=== PATIENT | male | born 1965 | race Caucasian/White ===

== ENCOUNTER 2016-09-08 13:03 | Observation (INO) | payer OTHER ==
[2016-09-08] MEDS ORDERED: NITROGLYCERIN SL TABS 0.4 MG TAB SUBLINGUAL STA (13:29)
[2016-09-08] MEDS ORDERED: ASPIRIN 81 MG CHEW PO STA (13:29)
[2016-09-08] MEDS ORDERED: IPRATROPIUM-ALBUTEROL 3 ML NEB INHALATION STA (13:29)
[2016-09-08] MEDS ORDERED: SODIUM CHLORIDE 0.9% 1,000 ML IV STA (13:29)
--- NOTE | 2016-09-08 13:33 | ED ---
Chest Pain HPI - General Chief Complaint: Chest Pain Stated Complaint: Chest Pain - Abnormal EKG Time Seen by Provider: 09/08/16 13:10 Source: patient, RN notes reviewed Mode of arrival: wheelchair Limitations: no limitations - History of Present Illness Initial Comments: 51-year-old male presents to the emergency department with a chief complaint of chest pain. Patient is 40 with a chest pain. It is revealed of his chest. Patient states he does have chronic COPD. Patient states that he is continuing with a cough cold runny nose and past 2 days. Patient is still more short of breath. Patient states he bleeds chest pain is related to COPD then to his heart. Patient states his been no nausea or vomiting. Patient states he has had a productive cough with that. Patient states that he went to urgent care and was sent here due to his EKG. Patient states pain is mild at this time. Patient states he feels more short of breath and chest pain. Patient denies any recent fever, chills, back pain, abdominal pain, nausea vomiting, numbness or tingling, dysuria or hematuria, constipation or diarrhea, headaches or visual changes, or any other current symptoms. - Related Data Home Medications Medication Instructions Recorded Confirmed Amoxicillin 500 mg PO Q8H 09/08/16 09/08/16 Cetirizine HCl [Zyrtec] 10 mg PO DAILY 09/08/16 09/08/16 Esomeprazole Magnesium [NexIUM] 20 mg PO DAILY PRN 09/08/16 09/08/16 Multivitamins, Thera [Multivitamin] 1 tab PO DAILY 09/08/16 09/08/16 Pseudoephedrine 12Hr [Sudafed 12Hr] 120 mg PO Q12H PRN 09/08/16 09/08/16 Zinc 50 mg PO DAILY 09/08/16 09/08/16 methylPREDNISolone [Medrol Dose 4 mg PO DIRECTED 09/08/16 09/08/16 Pack] Allergies Allergy/AdvReac Type Severity Reaction Status Date / Time No Known Allergies Allergy Verified 09/08/16 13:36 Review of Systems ROS Statement: Those systems with pertinent positive or pertinent negative responses have been documented in the HPI. ROS Other: All systems not noted in ROS Statement are negative. EKG Findings - EKG Comments: EKG Findings:: normal sinus rhythm 60 bpm, normal axis, no atopy, no S-T depressions or elevations, Past Medical History Past Medical History: COPD History of Any Multi-Drug Resistant Organisms: None Reported Past Surgical History: Cholecystectomy, Heart Catheterization Past Psychological History: No Psychological Hx Reported Smoking Status: Former smoker Past Alcohol Use History: Occasional Past Drug Use History: None Reported General Exam - General Exam Comments Initial Comments: General: The patient is awake and alert, in no distress, and does not appear acutely ill. Eye: Pupils are equal, round and reactive to light, extra-ocular movements are intact; there is normal conjunctiva bilaterally. No signs of icterus. Ears, nose, mouth and throat: There are moist mucous membranes and no oral lesions. Neck: The neck is supple, there is no tenderness. Cardiovascular: There is a regular rate and rhythm. No murmur, rub or gallop is appreciated. Respiratory: Lungs are clear to auscultation, respirations are non-labored, breath sounds are equal. expiratory wheeze, no stridor, rales, or rhonchi. Gastrointestinal: Soft, non-distended, non-tender abdomen without masses or organomegaly noted. There is no rebound or guarding present. No CVA tenderness. Bowel sounds are unremarkable. Back: There is no tenderness to palpation in the midline. There is no obvious deformity. No rashes noted. Musculoskeletal: Normal ROM, no tenderness, There is no pedal edema. There is no calf tenderness or swelling. Sensation intact. Pulses equal bilaterally 2+. Neurological: CN II-XII intact, There are no obvious motor or sensory deficits. Coordination appears grossly intact. Speech is normal. Skin: Skin is warm and dry and no rashes or lesions are noted. Psychiatric: Cooperative, appropriate mood & affect, normal judgment. Limitations: no limitations Course Vital Signs 09/08/16 09/08/16 09/08/16 13:09 13:54 13:57 Temperature 97 F L Pulse Rate 56 L 62 62 Respiratory 18 17 Rate Blood Pressure 134/92 122/83 O2 Sat by Pulse 99 100 Oximetry 09/08/16 09/08/16 14:02 15:01 Temperature Pulse Rate 67 66 Respiratory 17 Rate Blood Pressure O2 Sat by Pulse 100 Oximetry Chest Pain MDM - MDM 51-year-old male presents emergency Department chief complaint chest pain and shortness of breath. She did not change the patient's chest pain. Patient's EKG doesn't look stable compared to previous EKG however didn't the fact that he was having heaviness on the chest that has now since resolved there is concern it could be cardiac in origin. It could also be a COPD exacerbation he has been anorexic sensory outpatient we did feel better with the breathing treatment. This will get him for COPD exacerbation as well as unstable angina. We will continue cardiac rule out as well as continued breathing treatments and steroids for the patient. This is discussed with the patient and family and they're in agreement with this plan. All her questions have been answered. Disposition Clinical Impression: Unstable angina, COPD exacerbation, Failure of outpatient treatment Disposition: ADMITTED IP TO THIS HOSP Condition: Stable Referrals: Nicho Villalba MD [Primary Care Provider] - 1-2 days Time of Disposition: 16:08 Decision Date: 09/08/16 Decision Time: 16:08
[2016-09-08 13:46] LABS: Anisocytosis Slight; Basophils % (A) 0 %; CH 25.8; CHCM 31.3; Eosinophils % (A) 0 %; HCT 42.1 % (39.0-53.0); HDW 3.03; Hypochromasia Moderate; Luc # (Auto) 0.15; Luc % (Auto) 1; Lymphocytes # (A) 1.5 k/uL (1.0-4.8); Lymphocytes % (A) 12 %; MCH 25.7 pg (25.0-35.0); MCHC 30.9 g/dL (31.0-37.0); MCV 83.1 fL (80.0-100.0); Mean Platelet Volume 7.4; Monocytes # (A) 0.6 k/uL (0-1.0); Monocytes % (A) 5 %; Neutrophils # (A) 10.8 k/uL (1.3-7.7); Neutrophils % (A) 82 %; RBC 5.07 m/uL (4.30-5.90); WBC 13.2 k/uL (3.8-10.6); WBC (Perox) 13.63
[2016-09-08 13:47] LABS: Appearance,Urine Clear (Clear); Bilirubin,Urine Negative (Negative); Glucose,Urine (UA) Negative (Negative); Ketones,Urine Negative (Negative); Leukocyte Esterase,Urine Negative (Negative); Nitrite,Urine Negative (Negative); PH, Urine 5.5 (5.0-8.0); Protein,Urine Negative (Negative); Specific Gravity,Urine 1.008 (1.001-1.035); UA Billing (MACRO vs. MICRO) CHEM; Urobilinogen,Urine <2.0 mg/dL (<2.0)
[2016-09-08 14:05] LABS: ALT 46 U/L (21-72); AST 22 U/L (17-59); Alkaline Phosphatase 92 U/L (38-126); Amylase 55 U/L (30-110); Anion Gap 13 mmol/L; Blood Urea Nitrogen 14 mg/dL (9-20); Calcium 9.4 mg/dL (8.4-10.2); Carbon Dioxide 27 mmol/L (22-30); Chloride 103 mmol/L (98-107); Glucose 91 mg/dL (74-99); Magnesium 2.1 mg/dL (1.6-2.3); Non-African American GFR(MDRD) >60 (>60 ml/min/1.73 sqM); Sodium 143 mmol/L (137-145); Total Bilirubin 0.3 mg/dL (0.2-1.3); Total Protein 7.2 g/dL (6.3-8.2)
[2016-09-08 14:06] LABS: Creatine Kinase 37 U/L (55-170)
--- NOTE | 2016-09-08 14:10 | XR ---
EXAMINATION TYPE: XR chest 2V DATE OF EXAM: 09/08/2016 1:51 PM COMPARISON: 05/09/2014 HISTORY: Chest pain FINDINGS: The lungs are clear and there is no pneumothorax, pleural effusion, or focal pneumonia. Right paratr acheal soft tissue fullness noted. Surgical clips in the abdomen seen. IMPRESSION: 1. No acute process. Right paratracheal soft tissue fullness may be vascular. Consider follow-up CT c hest to exclude adenopathy.
[2016-09-08 14:13] LABS: Partial Thromboplastin Time 23.6 sec (22.0-30.0); Prothrombin Time 10.3 sec (9.0-12.0)
[2016-09-08 14:19] LABS: Creatine Kinase MB 2.1 ng/mL (0.0-2.4); Troponin I <0.012 ng/mL (0.000-0.034)
[2016-09-08 14:36] LABS: Potassium 4.4 mmol/L (3.5-5.1)
[2016-09-08] MEDS ORDERED: RX INFO: IV CONTRAST WAS GIVEN 1 EACH MISC MISCELLANE PRN (14:53)
--- NOTE | 2016-09-08 15:36 | CT ---
CT CHEST FOR PULMONARY EMBOLISM. EXAMINATION TYPE: CT chest angio for PE DATE OF EXAM: 09/08/2016 3:20 PM INDICATION: Pt states of chest heaviness today. Hx of COPD. CT DLP: 740 mGycm, Automated exposure control for dose reduction was used. CONTRAST: Patient injected with 100 mL of Omnipaque 350. COMPARISON: NONE TECHNIQUE: CT of the chest is performed on a spiral scan at 2 mm thick sections. Study is performed with intravenous contrast timed for evaluation for pulmonary embolism. This will limit additional po rtions of the evaluation. 3-D MIP images reconstructed by the technologist are reviewed on the compu ter in the coronal and sagittal planes. FINDINGS: No persistent filling defects are evident to suggest an acute pulmonary embolism. No mediastinal or hilar adenopathy enlarged by CT criteria is evident. The ascending aorta diameter at the level of the main pulmonary artery is 3.5 cm. The main pulmonary artery diameter at the bifur cation is 3.2 cm. Lung windows are clear. Limited CT section through the upper abdomen are unremarkable. IMPRESSIONS: 1. No acute pulmonary embolism.
[2016-09-08] MEDS ORDERED: NITROGLYCERIN SL TABS 0.4 MG TAB SUBLINGUAL PRN (16:08)
[2016-09-08] MEDS ORDERED: HEPARIN SODIUM,PORCINE 5,000 UNIT/ML 1 ML VIAL IV ONE (16:08)
[2016-09-08] MEDS ORDERED: IPRATROPIUM-ALBUTEROL 3 ML NEB INHALATION PRN (16:10)
[2016-09-08] MEDS ORDERED: PANTOPRAZOLE 40 MG TABLET PO PRN (16:11)
[2016-09-08] MEDS ORDERED: PSEUDOEPHEDRINE 12HR 120 MG TABLET.ER PO PRN (16:11)
[2016-09-08] MEDS ORDERED: HEPARIN SODIUM,PORCINE/D5W PMX 25,000 UNIT in DEXTROSE/WATER 1 500ML.BAG IV SCH (16:15)
[2016-09-08 20:12] LABS: Creatine Kinase 28 U/L (55-170)
[2016-09-08 20:17] LABS: Glucose,Whole Blood 122 mg/dL (75-99)
[2016-09-08 20:24] LABS: Creatine Kinase MB 1.6 ng/mL (0.0-2.4); Troponin I <0.012 ng/mL (0.000-0.034)
[2016-09-08 20:26] VITALS: BMI 30.9
[2016-09-08] MEDS: INSULIN LISPRO (humaLOG) 300 UNIT/3 ML VIAL SQ SCH (20:38)
[2016-09-08] MEDS: methylPREDNISolone SOD SUCCI 125 MG/2 ML VIAL IV SCH ×2 (20:39→23:08)
[2016-09-08] MEDS ORDERED: AMOXIC-POT CLAV 875-125MG 1 EACH TAB PO SCH (21:00)
[2016-09-08] MEDS: ACETAMINOPHEN TAB 325 MG TAB PO PRN (23:07)
[2016-09-08 23:27] LABS: Hemoglobin A1C 5.8 % (4.2-6.1)
[2016-09-09 01:04] LABS: Creatine Kinase 30 U/L (55-170)
[2016-09-09 01:16] LABS: Creatine Kinase MB 1.6 ng/mL (0.0-2.4); Troponin I <0.012 ng/mL (0.000-0.034)
[2016-09-09] MEDS ORDERED: HEPARIN SODIUM,PORCINE 5,000 UNIT/ML 1 ML VIAL IV PRN (02:53)
[2016-09-09 05:56] LABS: Glucose,Whole Blood 149 mg/dL (75-99)
[2016-09-09] MEDS: INSULIN LISPRO (humaLOG) 300 UNIT/3 ML VIAL SQ SCH ×4 (06:45→21:13)
[2016-09-09] MEDS: methylPREDNISolone SOD SUCCI 125 MG/2 ML VIAL IV SCH ×4 (06:45→23:26)
[2016-09-09] MEDS: IPRATROPIUM-ALBUTEROL 3 ML NEB INHALATION SCH ×3 (08:41→21:09)
--- NOTE | 2016-09-09 09:30 | P.CRDCN ---
History of Present Illness Consult date: 09/09/16 Requesting physician: Em Nava Consult reason: chest pain Chief complaint: Chest pain History of present illness: This is a 51-year-old gentleman with no prior documented history of hypertension, no hyperlipidemia, nonsmoker, no diabetes, no family history of premature coronary artery disease, rare EtOH, he has been dealing with what appears to be a bronchitis for the past few days, he originally went to the urgent care, was initiated on antibiotics, and steroids. Patient states he was not feeling much better and again went to the urgent care yesterday, he has been coughing a significant amount, nonproductive, was complaining of some chest heaviness in the office, EKG was performed which they felt to be abnormal and for this reason he was recommended to come to the hospital for further evaluation. EKG on arrival here showed a normal sinus rhythm with nonspecific ST-T wave changes in the inferior lateral leads, similar to EKG performed in 2005. Chest x-ray did not reveal any acute process, right paratracheal soft tissue fullness, may be vascular. No acute cardiopulmonary changes noted. CTA of the chest was performed which was negative for pulmonary embolism. No mediastinal or hilar adenopathy evident. Ascending aortic diameter at the level of the main pulmonary artery 3.5 cm. The main pulmonary artery diameter 3.2 cm. White blood cell count 13.2, hemoglobin 13.0. D-dimer negative. Potassium 4.4, creatinine 0.8. Magnesium level 2.1. Troponins have been negative 3. At the time of my examination this morning, patient continues to have nonproductive cough with intermittent heaviness in the chest. Past Medical History Past Medical History: COPD, GERD/Reflux, Osteoarthritis (OA) History of Any Multi-Drug Resistant Organisms: None Reported Past Surgical History: Cholecystectomy, Heart Catheterization Past Psychological History: No Psychological Hx Reported Smoking Status: Former smoker Past Alcohol Use History: Occasional Past Drug Use History: None Reported - Past Family History Mother Family Medical History: COPD, GERD/Reflux, Hypertension Additional Family Medical History / Comment(s): Glaucoma, staph infection Father Family Medical History: Coronary Artery Disease (CAD) Additional Family Medical History / Comment(s): Cancer-skin, stents placed Medications and Allergies Home Medications Medication Instructions Recorded Confirmed Type Amoxicillin 500 mg PO Q8H 09/08/16 09/08/16 History Cetirizine HCl [Zyrtec] 10 mg PO DAILY 09/08/16 09/08/16 History Esomeprazole Magnesium [NexIUM] 20 mg PO DAILY PRN 09/08/16 09/08/16 History Multivitamins, Thera [Multivitamin] 1 tab PO DAILY 09/08/16 09/08/16 History Pseudoephedrine 12Hr [Sudafed 12Hr] 120 mg PO Q12H PRN 09/08/16 09/08/16 History Zinc 50 mg PO DAILY 09/08/16 09/08/16 History methylPREDNISolone [Medrol Dose 4 mg PO DIRECTED 09/08/16 09/08/16 History Pack] Allergies Allergy/AdvReac Type Severity Reaction Status Date / Time No Known Allergies Allergy Verified 09/08/16 13:36 Physical Exam Vitals: Vital Signs Temp Pulse Pulse Resp BP BP Pulse Ox 09/09/16 07:47 80 17 09/09/16 07:40 97.4 F L 80 17 137/75 94 L 09/09/16 03:36 69 16 09/09/16 03:35 97.3 F L 69 16 106/56 95 09/08/16 23:31 72 16 09/08/16 23:04 72 16 123/72 94 L 09/08/16 22:35 80 09/08/16 22:24 80 09/08/16 19:55 97.8 F 68 17 138/82 98 09/08/16 19:39 97.0 F L 64 16 133/86 96 09/08/16 18:27 73 17 127/79 97 09/08/16 16:39 72 17 133/85 100 Intake and Output 09/08/16 09/09/16 09/09/16 22:59 06:59 14:59 Intake Total 208.771 Output Total 600 Balance -391.229 Intake: Intake, IV Titration 208.771 Amount Heparin Sodium,Porcine/ 208.771 D5w Pmx 25,000 unit In Dextrose/Water 1 500ml. bag @ 10.26 UNITS/KG/HR 20.01 mls/hr IV .Q24H JOE Rx#:[id number] Output: Urine 600 Other: # Voids 1 1 Weight 100.4 kg 100.4 kg PHYSICAL EXAMINATION: HEENT: Head is atraumatic, normocephalic. Pupils equal, round. Neck is supple. There is no elevated jugular venous pressure. HEART EXAMINATION: Heart S1, S2 normal. No murmur or gallop heard. CHEST EXAMINATION: Lungs reveal scattered coarse rhonchi that clear with cough. ABDOMEN: Soft, nontender. Bowel sounds are heard. No organomegaly noted. EXTREMITIES: 2+ peripheral pulses with no evidence of peripheral edema and no calf tenderness noted. NEUROLOGIC patient is awake, alert and oriented -3. . Results 09/08/16 13:30 09/08/16 13:30 Cardiac Enzymes 09/08/16 09/09/16 Range/Units 19:33 00:31 CK-MB (CK-2) 1.6 1.6 (0.0-2.4) ng/mL Troponin I <0.012 <0.012 (0.000-0.034) ng/mL Coagulation 09/09/16 Range/Units 00:31 APTT 31.2 H (22.0-30.0) sec Current Medications Generic Name Dose Route Start Last Admin Trade Name Freq PRN Reason Stop Dose Admin Acetaminophen 650 mg 09/08/16 20:55 09/08/16 23:07 Tylenol Tab PO 650 mg Q6HR PRN Administration Fever and/ or Pain Albuterol/Ipratropium 3 ml 09/08/16 16:10 09/08/16 22:32 Duoneb 0.5 Mg-3 Mg/3 Ml Soln INHALATION 3 ml RT-Q4H PRN Administration Shortness Of Breath Or Wheezing Albuterol/Ipratropium 3 ml 09/09/16 08:00 09/09/16 08:41 Duoneb 0.5 Mg-3 Mg/3 Ml Soln INHALATION 3 ml RT-TID JOE Administration Aspirin 325 mg 09/09/16 09:00 Aspirin PO DAILY JOE Heparin Sodium (Porcine) 5,000 unit 09/09/16 02:53 Heparin IV ONCE PRN heparin protocol Heparin Sodium/Dextrose 25,000 500 mls @ 20.01 mls/hr 09/08/16 16:15 02:50 unit/ IV Solution IV 13.26 units/kg/hr .Q24H JOE 25.86 mls/hr Protocol Titration 10.26 UNITS/KG/HR Ceftriaxone Sodium 1,000 mg/ 50 mls @ 100 mls/hr 09/09/16 09:00 09/09/16 07: 42 Sodium Chloride IVPB 100 mls/hr Q24HR JOE Administration Insulin Human Lispro 0 unit 09/08/16 21:00 09/09/16 06:45 Humalog SQ 2 unit ACHS JOE Administration Protocol Loratadine 10 mg 09/09/16 09:00 Claritin PO DAILY JOE Methylprednisolone Sodium Succinate 60 mg 09/08/16 18:00 09/09/16 06:45 Solu-Medrol IV 60 mg Q6HR JOE Administration Miscellaneous Information 1 each 09/08/16 14:53 Rx Info: Iv Contrast Was Given MISCELLANE 09/10/16 14:53 DAILY PRN Per Protocol Multivitamins 1 each 09/09/16 12:00 Theragran PO DAILY@1200 [facility] Nitroglycerin 0.4 mg 09/08/16 16:08 Nitrostat SUBLINGUAL Q5M PRN Chest Pain Pantoprazole Sodium 40 mg 09/08/16 16:11 Protonix PO DAILY PRN Heartburn Pseudoephedrine HCl 120 mg 09/08/16 16:11 09/08/16 23:08 Sudafed 12hr PO 120 mg Q12H PRN Administration Congestion Zinc Gluconate 50 mg 09/09/16 12:00 Zinc PO DAILY@1200 [facility] Intake and Output 09/08/16 09/09/16 09/09/16 22:59 06:59 14:59 Intake Total 208.771 Output Total 600 Balance -391.229 Intake: Intake, IV Titration 208.771 Amount Heparin Sodium,Porcine/ 208.771 D5w Pmx 25,000 unit In Dextrose/Water 1 500ml. bag @ 10.26 UNITS/KG/HR 20.01 mls/hr IV .Q24H [facility] Rx#:[id number] Output: Urine 600 Other: # Voids 1 1 Weight 100.4 kg 100.4 kg EKG Interpretations (text) EKG shows a normal sinus rhythm with nonspecific ST-T wave changes in the inferior lateral leads Assessment and Plan Plan: Assessment and plan #1 chest pain, atypical for acute coronary syndrome. Troponins negative 3. EKG shows normal sinus rhythm with nonspecific inferior lateral ST-T wave changes(J-point elevation). Similar to EKG performed in 2005. Patient did undergo heart catheterization several years ago which was reported to be normal. #2 cardiac risk factors negative for hypertension, no diabetes, no hyperlipidemia, patient is a nonsmoker. No family history of premature coronary artery disease. #3 GERD #4 chronic persistent bronchitis Plan We will obtain an echocardiogram with Doppler study. Discontinue IV heparin. Discontinue Nitropaste. Suggest pulmonary evaluation for the persistent bronchitis. Stress test may be performed as an outpatient down the road once the bronchitis has resolved. Further recommendations to follow. DNP note has been reviewed, I agree with a documented findings and plan of care. Patient was seen and examined.
--- NOTE | 2016-09-09 09:59 | HP ---
DATE OF ADMISSION: DATE OF SERVICE: 09/08/2016 CHIEF COMPLAINT: Chest pain. HISTORY OF PRESENT ILLNESS: This 51-year-old gentleman with a past medical history of multiple medical problems including COPD, GERD, DJD, history of cholecystectomy, cardiac catheterization and nicotine dependence being followed by Dr. Nicho Villalba in the outpatient setting presented with chest pain. 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 Details are not available. Currently the patient is complaining of runny nose initially, but subsequently patient had just some cough without much sputum. Today the patient came to [facility] with complaints of cough and chest pain, which is felt in the anterior part of the chest and patient underwent chest x-ray and CT angiography to rule out pulmonary embolism. Chest x-ray showed no acute abnormality. Patient was admitted further evaluation. EKG was also taken which showed no acute abnormality with normal sinus rhythm. There is no history of any fever, rigors or chills. No history of headache, loss of consciousness or seizures. PAST MEDICAL HISTORY: History of COPD, GERD, DJD, history of cholecystectomy. Medications at the time of admission include: 1. Medrol Dosepak. 2. Zinc 50 mg daily. 3. Sudafed 12 hour p.o. p.r.n. 4. Multivitamin 1 p.o. daily. 5. Nexium 20 mg daily. 6. Zyrtec 10 mg daily. 7. Amoxicillin 500 mg q.8 p.r.n. Allergies are none. FAMILY HISTORY: History of COPD, GERD, hypertension, glaucoma and staph infection in the family. SOCIAL HISTORY: Previous history of smoking. No history of alcohol intake. REVIEW OF SYSTEMS: ENT: No diminished hearing or vision. CARDIOVASCULAR: As mentioned earlier. RESPIRATORY: As mentioned earlier. GI: No nausea. : No dysuria. NERVOUS SYSTEM: No numbness or weakness. ALLERGY/IMMUNOLOGY: No asthma or hayfever. MUSCULOSKELETAL: As mentioned earlier. HEMATOLOGY/ONCOLOGY: No history of anemia. ENDOCRINE: No history of diabetes or hypothyroidism. CONSTITUTIONAL: As mentioned earlier. DERMATOLOGY: Negative. RHEUMATOLOGY: Negative. PSYCHIATRY: As mentioned earlier. PHYSICAL EXAMINATION: The patient is alert and oriented x3. The pulse is 72, blood pressure 123/72, respirations 16, temperature 97.8, pulse ox 94% on room air. HEENT: Conjunctivae normal. Oral mucosa moist. NECK: No jugular venous distention. No carotid bruit. No lymph node enlargement. CARDIOVASCULAR: S1 and S2, muffled. No S3, no S4. RESPIRATORY: Breath sounds diminished at the bases. Bilateral scattered rhonchi. No crackles. ABDOMEN: Soft, nontender. No mass palpable. LEGS: No edema, no swelling. NERVOUS SYSTEM: Higher function as mentioned. Moves all 4 limbs. No focal motor deficits. LYMPHATICS: No lymphadenopathy of neck, axillae or groin. SKIN: No ulcers, rashes or bleeding. JOINTS: deforming arthropathy. LABS: WBC 13.2 and platelets of 516. Glucose 122. UA noted. ASSESSMENT: 1. Chest pain, possible unstable angina, rule out coronary artery disease. 2. Possible chronic obstructive pulmonary disease acute chronic obstructive pulmonary disease with acute purulent tracheobronchitis. 3. Increased WBC. 4. Remote history of nicotine dependence. 5. History of gastroesophageal reflux disease. 6. History of degenerative joint disease. 7. History of cholecystectomy. 8. History of cardiac catheterization. RECOMMENDATIONS AND DISCUSSION: In this 51-year-old gentleman who presented with multiple complex medical issues, we will monitor the patient closely. Continue the current medications. Continue symptomatic treatment. I would recommend bronchodilators and steroids and rule out myocardial infarction . Consult Cardiology. Monitor blood sugars closely. Further recommendations to follow. A copy of dictation forwarded to Dr. Dr. Nicho Villalba who is the primary physician. GERONIMO
[2016-09-09 10:48] LABS: Cholesterol 216 mg/dL (<200); HDL Cholesterol 51 mg/dL (40-60); Triglycerides 118 mg/dL (<150)
[2016-09-09] MEDS: MULTIVITAMINS, THERA 1 EACH TAB PO SCH (11:32)
[2016-09-09] MEDS: ZINC GLUCONATE 50 MG TAB PO SCH (11:32)
[2016-09-09] MEDS: LORATADINE 10 MG TAB PO SCH (11:32)
[2016-09-09] MEDS: ASPIRIN 325 MG TAB PO SCH (11:32)
[2016-09-09] MEDS: ACETAMINOPHEN TAB 325 MG TAB PO PRN ×2 (11:38→17:02)
[2016-09-09 11:59] LABS: Glucose,Whole Blood 160 mg/dL (75-99)
--- NOTE | 2016-09-09 12:57 | ECHOF ---
Referral Reason:chest pain MEASUREMENTS -------- HEIGHT: 180.3 cm WEIGHT: 100.2 kg BP: 137/75 IVSd: 1.3 cm (0.6 - 1.1) LVIDd: 3.4 cm (3.9 - 5.3) LVPWd: 1.2 cm (0.6 - 1.1) IVSs: 1.7 cm LVIDs: 1.8 cm LVPWs: 1.9 cm Ao Diam: 3.4 cm (2.0 - 3.7) AV Cusp: 1.6 cm (1.5 - 2.6) LA Diam: 3.4 cm (2.7 - 3.8) MV EXCURSION: 13.883 mm (> 18.000) MV EF SLOPE: 48 mm/s (70 - 150) EPSS: 0.6 cm MV E Marky: 0.67 m/s MV DecT: 245 ms MV A Marky: 0.84 m/s MV E/A Ratio: 0.80 RAP: 5.00 mmHg RVSP: 12.14 mmHg FINDINGS -------- Sinus rhythm. This was a technically good study. There is mild concentric left ventricular hypertrophy. Overall left ventricular systolic function is normal with, an EF between 55 - 60 %. The right ventricle is normal in size and function. The left atrium is normal in size. The right atrium is normal in size. The aortic valve is trileaflet, and appears structurally normal. No aortic stenosis or regurgitation. Mild mitral regurgitation is present. Mild tricuspid regurgitation present. The right ventricular systolic pressure, as measured by Doppler, is 12.14mmHg. Pulmonic valve appears structurally normal. The aortic root size is normal. The pericardium is normal. CONCLUSIONS -------- 1. Sinus rhythm. 2. Mild tricuspid regurgitation present. 3. The right ventricular systolic pressure, as measured by Doppler, is 12.14mmHg. 4. Pulmonic valve appears structurally normal. 5. The aortic root size is normal. 6. The pericardium is normal. 7. This was a technically good study. 8. There is mild concentric left ventricular hypertrophy. 9. Overall left ventricular systolic function is normal with, an EF between 55 - 60 %. 10. The right ventricle is normal in size and function. 11. The left atrium is normal in size. 12. The right atrium is normal in size. 13. The aortic valve is trileaflet, and appears structurally normal. No aortic stenosis or regurgitation. 14. Mild mitral regurgitation is present. MUSIC SUPERVISOR: Bhavya Martinez RDCS
[2016-09-09] MEDS ORDERED: SYMBICORT 160-4.5 MCG INHALER INHALATION SCH (13:15)
--- NOTE | 2016-09-09 14:59 | P.CNPUL ---
History of Present Illness Consult date: 09/09/16 Reason for consult: dyspnea, cough, other Chief complaint: Shortness of breath and chest pain History of present illness: This is a very pleasant 51-year-old male presents to the emergency department with complaints of chest pain cough shortness of breath. He apparently coughed violently he has near syncope. He apparently was seen by Dr. Hale the past and told that he had no evidence of any chronic lung disease. Dr. Auguste apparently did pulmonary function test on him in my office. Anyway about once a year he develops his upper respiratory infection which turns into her lower respiratory tract condition we have chest congestion cough and difficulty breathing wheezing. If cough becomes so significant and profound that he almost blacks out. Anyway he has one of these episodes currently. In addition he has some tightness in his chest. Dr. Hale apparently told me he thought it was more his heart and his lungs. Review of Systems A 12 point review of system is positive for chest congestion cough tightness in her chest difficulty breathing and cough syncope all under the pulmonary system. The rest of the 12 point review of system is unremarkable. Past Medical History Past Medical History: COPD, GERD/Reflux, Osteoarthritis (OA) History of Any Multi-Drug Resistant Organisms: None Reported Past Surgical History: Cholecystectomy, Heart Catheterization Past Psychological History: No Psychological Hx Reported Smoking Status: Former smoker Past Alcohol Use History: Occasional Past Drug Use History: None Reported - Past Family History Mother Family Medical History: COPD, GERD/Reflux, Hypertension Additional Family Medical History / Comment(s): Glaucoma, staph infection Father Family Medical History: Coronary Artery Disease (CAD) Additional Family Medical History / Comment(s): Cancer-skin, stents placed Medications and Allergies Home Medications Medication Instructions Recorded Confirmed Type Cetirizine HCl [Zyrtec] 10 mg PO DAILY 09/08/16 09/08/16 History Esomeprazole Magnesium [NexIUM] 20 mg PO DAILY PRN 09/08/16 09/08/16 History Multivitamins, Thera [Multivitamin] 1 tab PO DAILY 09/08/16 09/08/16 History Pseudoephedrine 12Hr [Sudafed 12 120 mg PO Q12H PRN 09/08/16 09/08/16 History Hour] Zinc 50 mg PO DAILY 09/08/16 09/08/16 History Allergies Allergy/AdvReac Type Severity Reaction Status Date / Time No Known Allergies Allergy Verified 09/08/16 13:36 Physical Exam Osteopathic Statement: *. No significant issues noted on an osteopathic structural exam other than those noted in the History and Physical/Consult. Vitals: Vital Signs Temp Pulse Pulse Resp BP BP Pulse Ox 09/09/16 13:20 78 09/09/16 13:05 78 09/09/16 11:41 17 09/09/16 11:30 80 17 125/76 93 L 09/09/16 08:55 80 93 L 09/09/16 08:41 78 09/09/16 07:47 80 17 09/09/16 07:40 97.4 F L 80 17 137/75 94 L 09/09/16 03:36 69 16 09/09/16 03:35 97.3 F L 69 16 106/56 95 09/08/16 23:31 72 16 09/08/16 23:04 72 16 123/72 94 L 09/08/16 22:35 80 09/08/16 22:24 80 09/08/16 19:55 97.8 F 68 17 138/82 98 09/08/16 19:39 97.0 F L 64 16 133/86 96 09/08/16 18:27 73 17 127/79 97 09/08/16 16:39 72 17 133/85 100 Intake and Output 09/08/16 09/09/16 09/09/16 22:59 06:59 14:59 Intake Total 208.771 300 Output Total 600 600 Balance -391.229 -300 Intake: Intake, IV Titration 208.771 Amount Heparin Sodium,Porcine/ 208.771 D5w Pmx 25,000 unit In Dextrose/Water 1 500ml. bag @ 10.26 UNITS/KG/HR 20.01 mls/hr IV .Q24H PENDING SALE TO [facility] Rx#:[id number] Oral 300 Output: Urine 600 600 Other: # Voids 1 1 Weight 100.4 kg 100.4 kg No acute distress, oriented 3. He has a violent cough while in the room and coughs a number times and has a cough that makes me believe that he likely has underlying tracheal bronchomalacia. The cough is somewhat congested and very rhonchorous sound sounds. HEENT examination is grossly unremarkable. Mucous membranes are moist. There were no oral lesions. Neck supple. Full range of motion. No adenopathy. Cardiovascular examination reveals regular rhythm rate. S1 and S2 normal. No S3-S4. No murmur. Lungs reveal some coarse rhonchi and wheezes. Breath sounds are diminished. Expiratory coarse rhonchi noted bilaterally. The rest examinations unremarkable. Next Abdomen soft. Extremities are intact. Results - Laboratory Findings CBC and BMP: 09/08/16 13:30 09/08/16 13:30 PT/INR, D-dimer PT 10.3 sec (9.0-12.0) 09/08/16 13:30 INR 1.0 (<1.1) 09/08/16 13:30 D-Dimer <0.17 mg/L FEU (<0.60) 09/08/16 13:30 Abnormal lab findings: Abnormal Labs 09/08/16 09/08/16 09/09/16 19:33 20:15 00:31 APTT POC Glucose (mg/dL) 122 H Total Creatine Kinase 28 L 30 L Cholesterol LDL Cholesterol, Calc 09/09/16 09/09/16 09/09/16 00:31 05:54 09:34 APTT 31.2 H POC Glucose (mg/dL) 149 H Total Creatine Kinase Cholesterol 216 H LDL Cholesterol, Calc 141 H 09/09/16 09/09/16 09:34 11:58 APTT 48.9 H POC Glucose (mg/dL) 160 H Total Creatine Kinase Cholesterol LDL Cholesterol, Calc Assessment and Plan (1) COPD exacerbation Status: Acute Plan: Plan This patient will receive a 2 pronged therapy. Initially he'll be given bronchodilators steroids antibiotics and so forth to help with the acute process. Subsequent to that he'll need to be seen in the office at which time he'll need a 6 minute walk distance a chest x-ray and a pulmonary function test. In fact he did have a PFT with Dr. Auguste that was normal, we might consider methacholine challenge test. Finally, to document his tracheal bronchomalacia, a bronchoscopy may be in order. Time with Patient: Greater than 30
[2016-09-09 16:56] LABS: Glucose,Whole Blood 150 mg/dL (75-99)
[2016-09-09 21:01] LABS: Glucose,Whole Blood 157 mg/dL (75-99)
[2016-09-09] MEDS: BUDESONIDE 1 MG/2 ML NEBU INHALATION SCH (21:10)
[2016-09-09] MEDS: FORMOTEROL FUMARATE 20 MCG/2 ML NEBU INHALATION SCH (21:10)
[2016-09-10] MEDS: methylPREDNISolone SOD SUCCI 125 MG/2 ML VIAL IV SCH ×4 (05:52→23:02)
[2016-09-10 07:45] LABS: Glucose,Whole Blood 127 mg/dL (75-99)
[2016-09-10] MEDS: FORMOTEROL FUMARATE 20 MCG/2 ML NEBU INHALATION SCH ×2 (08:02→20:36)
[2016-09-10] MEDS: BUDESONIDE 1 MG/2 ML NEBU INHALATION SCH ×2 (08:02→20:36)
[2016-09-10] MEDS: IPRATROPIUM-ALBUTEROL 3 ML NEB INHALATION SCH ×3 (08:02→20:36)
[2016-09-10] MEDS: INSULIN LISPRO (humaLOG) 300 UNIT/3 ML VIAL SQ SCH ×4 (08:42→21:39)
[2016-09-10] MEDS: LORATADINE 10 MG TAB PO SCH (08:49)
[2016-09-10] MEDS: ATORVASTATIN 10 MG TAB PO SCH (08:49)
[2016-09-10] MEDS: ASPIRIN 325 MG TAB PO SCH (08:50)
[2016-09-10] MEDS: ACETAMINOPHEN TAB 325 MG TAB PO PRN ×2 (09:11→15:46)
--- NOTE | 2016-09-10 11:17 | PN ---
DATE OF SERVICE: 09/09/2016 This 51-year-old gentleman who was admitted with chest pain, also had a cough indicating bronchitis also. No fever. No headache, loss of consciousness or seizures. No shortness of breath. On exam, alert and oriented x3. Pulse 84, blood pressure 120/58, respirations 18, temperature 97.1, pulse ox 94% on room air. HEENT: Conjunctivae normal. NECK: No jugular venous distention. CARDIOVASCULAR: S1 and S2, muffled. RESPIRATORY: Breath sounds diminished at the bases. A few scattered rhonchi and crackles. ABDOMEN: Soft, nontender. LEGS: No edema, no swelling. NERVOUS SYSTEM: No focal deficits. LABS: WBC 13.2, Other labs are noted. Lipids are noted. ASSESSMENT: 1. Chest pain, possible unstable angina, acute coronary syndrome ruled out. 2. Possible chronic obstructive pulmonary disease, acute exacerbation with acute purulent tracheobronchitis. 3. Incessant cough. 4. Increased WBC. 5. Remote history of nicotine dependence. 6. History of gastroesophageal reflux disease. 7. History of degenerative joint disease. 8. History of cholecystectomy. 9. History of cardiac catheterization. 10. Hyperlipidemia. RECOMMENDATIONS AND DISCUSSION: Recommend to continue the current medications. Continue with monitoring and symptomatic treatment. Otherwise, at this time I would recommend continue with the current medications, continue with symptomatic treatment. Outpatient followup as recommended by Cardiology. Guarded prognosis because of multiple complex medical issues. Further recommendations to follow. Continue with bronchodilators.
[2016-09-10 12:07] LABS: Glucose,Whole Blood 174 mg/dL (75-99)
[2016-09-10] MEDS: ZINC GLUCONATE 50 MG TAB PO SCH (12:32)
[2016-09-10] MEDS: MULTIVITAMINS, THERA 1 EACH TAB PO SCH (12:32)
--- NOTE | 2016-09-10 13:35 | P.PN ---
Subjective Progress note dated 09/10/2016 X This is a 51-year-old gentleman who we saw yesterday in consultation. He presented to the emergency department with complaints of chest pain cough shortness of breath. He apparently has cough syncope. Doing much better today. He is seeing Dr. Auguste in the past. He does need follow-up and pulmonary. I told him that he should probably stay 1 more day for additional steroids bronchodilators, etc. The Tessalon Perles and also the Tussionex seem to be helping his cough. His is at the bedside. Objective - Vital Signs Vital signs: Vital Signs Temp 97.0 F L 09/10/16 07:00 Pulse 84 09/10/16 12:21 Resp 20 09/10/16 08:02 BP 104/65 09/10/16 07:00 Pulse Ox 94 L 09/10/16 07:00 Intake & Output 09/09/16 09/10/16 09/10/16 18:59 06:59 18:59 Intake Total 300 100 480 Output Total 600 Balance -300 100 480 Intake: Oral 300 100 480 Output: Urine 600 Other: # Voids 1 - Exam No acute distress, oriented 3. HEENT examination is grossly unremarkable. Mucous membranes are moist. There are no oral lesions. Neck supple. Full range of motion. No adenopathy. Neck veins are flat. Cardiovascular examination reveals regular rhythm rate. S1-S2 normal. Lungs reveal some coarse expiratory rhonchi. Breath sounds have improved. No expiratory wheezes. No crackles. He does have one bile and cough while was in the room. Abdomen soft Extremities are intact. - Labs CBC & Chem 7: 09/08/16 13:30 09/08/16 13:30 Labs: Abnormal Lab Results - Last 24 Hours (Table) 09/09/16 09/09/16 09/10/16 Range/Units 16:55 20:52 07:17 POC Glucose (mg/dL) 150 H 157 H 127 H (75-99) mg/dL 09/10/16 Range/Units 11:50 POC Glucose (mg/dL) 174 H (75-99) mg/dL Assessment and Plan (1) COPD exacerbation Status: Acute Plan: Plan This patient will receive a 2 pronged therapy. Initially he'll be given bronchodilators steroids antibiotics and so forth to help with the acute process. Subsequent to that he'll need to be seen in the office at which time he'll need a 6 minute walk distance a chest x-ray and a pulmonary function test. In fact he did have a PFT with Dr. Auguste that was normal, we might consider methacholine challenge test. Finally, to document his tracheal bronchomalacia, a bronchoscopy may be in order. Plan dated 09/10/2016 The patient seems to be doing better. Can be discharged tomorrow. Should be sent home on a short course of antibiotics and some prednisone with a burst and taper. In addition, he will need follow-up in the office. He has seen Dr. Auguste in the past. He should have a pulmonary function tests or recently done , and normal, and methacholine challenge test. In addition, he may benefit from bronchoscopy to evaluate the potential for tracheal bronchomalacia. Finally he should be discharged home on all the usual medications. Time with Patient: Less than 30
[2016-09-10] MEDS ORDERED: guaiFENesin SYRUP 100MG/5ML 200 MG/10 ML CUP PO PRN (14:33)
[2016-09-10 17:15] LABS: Glucose,Whole Blood 120 mg/dL (75-99)
[2016-09-10 21:28] LABS: Glucose,Whole Blood 146 mg/dL (75-99)
[2016-09-10] MEDS: ALPRAZolam 0.25 MG TAB PO PRN (23:02)
[2016-09-11] MEDS: methylPREDNISolone SOD SUCCI 125 MG/2 ML VIAL IV SCH ×4 (05:53→23:33)
[2016-09-11 07:38] LABS: Glucose,Whole Blood 125 mg/dL (75-99)
[2016-09-11] MEDS: IPRATROPIUM-ALBUTEROL 3 ML NEB INHALATION SCH ×3 (07:54→20:01)
[2016-09-11] MEDS: FORMOTEROL FUMARATE 20 MCG/2 ML NEBU INHALATION SCH ×2 (07:55→20:01)
[2016-09-11] MEDS: BUDESONIDE 1 MG/2 ML NEBU INHALATION SCH ×2 (07:55→20:06)
[2016-09-11] MEDS: ASPIRIN 325 MG TAB PO SCH (07:56)
[2016-09-11] MEDS: LORATADINE 10 MG TAB PO SCH (07:57)
[2016-09-11] MEDS: INSULIN LISPRO (humaLOG) 300 UNIT/3 ML VIAL SQ SCH ×4 (07:57→21:58)
[2016-09-11] MEDS: ATORVASTATIN 10 MG TAB PO SCH (07:57)
--- NOTE | 2016-09-11 10:53 | PN ---
DATE OF SERVICE: 09/10/2016 This 51-year-old gentleman who was admitted with chest pain, also had acute coronary syndrome. Patient also had possible COPD. The patient being closely monitored. At this time, no chest pain or palpitations. No fever. Dr. Calles is following the patient closely. On exam, alert and oriented x3. Pulse is 81, blood pressure 134/86, respirations 20, temperature 97.5, pulse ox 94% on room air. HEENT: Conjunctivae normal. NECK: No jugular venous distention. CARDIOVASCULAR: S1 and S2, muffled. RESPIRATORY: Breath sounds diminished at the bases. Bilateral scattered rhonchi and crackles. ABDOMEN: Soft, nontender. LEGS: No edema, no swelling. NERVOUS SYSTEM: No focal deficits Labs are cholesterol 216, LDL is 141. WBC noted. ASSESSMENT: 1. Chest pain, possible unstable angina, acute coronary syndrome ruled out. 2. Chronic obstructive pulmonary disease, acute exacerbation, acute purulent tracheobronchitis. 3. Incessant cough. 4. Increased WBC. 5. Remote history of nicotine dependence. 6. Hyperlipidemia. 7. History of gastroesophageal reflux disease. 8. History of degenerative joint disease. 9. History of cholecystectomy. 10. History of cardiac catheterization. 11. FULL CODE. RECOMMENDATIONS AND DISCUSSION: Recommend to continue current medications. Continue with monitoring. Continue with bronchodilators. Follow closely with Pulmonary. Continue with IV steroids. Guarded prognosis because of multiple complex medical issues. Further recommendations to follow.
--- NOTE | 2016-09-11 11:49 | P.PN ---
Subjective Progress note dated 09/10/2016 X This is a 51-year-old gentleman who we saw yesterday in consultation. He presented to the emergency department with complaints of chest pain cough shortness of breath. He apparently has cough syncope. Doing much better today. He is seeing Dr. Auguste in the past. He does need follow-up and pulmonary. I told him that he should probably stay 1 more day for additional steroids bronchodilators, etc. The Tessalon Perles and also the Tussionex seem to be helping his cough. His is at the bedside. Progress note dated 09/11/2016 This is a 51-year-old white male seen in consultation 2 days ago. The patient is doing a bit better. Is seeing Dr. Hale in the past. Apparently had pulmonary function test was told that everything was okay. He came with him with an episode about like a bronchitis with reactive bronchospasm and bronchial inflammation. Also sounds based on his cough they may have a component of tracheal bronchomalacia. States he gets sick about twice a year. The patient is well enough to go home today. The patient should be discharged home on some antibiotics and some steroids. I would also recommend a inhaler such as Symbicort to Advair or Breo which is a combination inhaled corticosteroid and long-acting beta agonist. He should also be discharged home on a rescue inhaler an [employer] machine. Objective - Vital Signs Vital signs: Vital Signs Temp 96.7 F L 09/11/16 07:00 Pulse 80 09/11/16 11:32 Resp 20 09/11/16 07:00 BP 121/68 09/11/16 07:00 Pulse Ox 92 L 09/11/16 07:00 Intake & Output 09/10/16 09/11/16 09/11/16 18:59 06:59 18:59 Intake Total 960 200 Output Total 1 Balance 960 199 Intake: Oral 960 200 Output: Stool 1 Other: Voiding Method Toilet # Voids 1 1 # Bowel Movements 1 # Emeses 1 - Exam No acute distress, oriented 3. HEENT examination is grossly unremarkable. Mucous membranes are moist. There are no oral lesions. Neck supple. Full range of motion. No adenopathy. Neck veins are flat. Cardiovascular examination reveals regular rhythm rate. S1-S2 normal. Lungs reveal some coarse expiratory rhonchi. Breath sounds have improved. No expiratory wheezes. No crackles. He does have one bile and cough while was in the room. Abdomen soft Extremities are intact. - Labs CBC & Chem 7: 09/08/16 13:30 09/08/16 13:30 Labs: Abnormal Lab Results - Last 24 Hours (Table) 09/10/16 09/10/16 09/10/16 Range/Units 11:50 17:03 21:18 POC Glucose (mg/dL) 174 H 120 H 146 H (75-99) mg/dL 09/11/16 Range/Units 07:15 POC Glucose (mg/dL) 125 H (75-99) mg/dL Assessment and Plan (1) COPD exacerbation Status: Acute Plan: Plan This patient will receive a 2 pronged therapy. Initially he'll be given bronchodilators steroids antibiotics and so forth to help with the acute process. Subsequent to that he'll need to be seen in the office at which time he'll need a 6 minute walk distance a chest x-ray and a pulmonary function test. In fact he did have a PFT with Dr. Auguste that was normal, we might consider methacholine challenge test. Finally, to document his tracheal bronchomalacia, a bronchoscopy may be in order. Plan dated 09/10/2016 The patient seems to be doing better. Can be discharged tomorrow. Should be sent home on a short course of antibiotics and some prednisone with a burst and taper. In addition, he will need follow-up in the office. He has seen Dr. Auguste in the past. He should have a pulmonary function tests or recently done , and normal, and methacholine challenge test. In addition, he may benefit from bronchoscopy to evaluate the potential for tracheal bronchomalacia. Finally he should be discharged home on all the usual medications. Plan dated 09/11/2016 The patient is doing better. The patient could be discharged home today. The patient may benefit from a methacholine challenge test and/or bronchoscopy with airway examination in the future. The patient will follow with me in the office. The patient should be discharged home on some prednisone with a burst and taper 40 for 4 days, 30 mg for 4 days, 20 mg for 4 days, and, 10 mg 4 days and stop. The patient should also go home on some sort of oral antibiotic for about 7-10 days. In addition, the patient would benefit from a rescue medication such as albuterol inhaler 2 puffs when necessary as well as a combination inhaler such as Advair, Symbicort, Deanne Gomez, which is a combination inhaled corticosteroid and long-acting beta agonist. Time with Patient: Less than 30
[2016-09-11] MEDS: MULTIVITAMINS, THERA 1 EACH TAB PO SCH (12:06)
[2016-09-11] MEDS: ZINC GLUCONATE 50 MG TAB PO SCH (12:06)
[2016-09-11 12:10] LABS: Glucose,Whole Blood 145 mg/dL (75-99)
[2016-09-11] MEDS: ACETAMINOPHEN TAB 325 MG TAB PO PRN (12:20)
[2016-09-11 13:24] LABS: Basophils % (A) 0 %; CH 25.9; CHCM 31.1; Eosinophils % (A) 0 %; HCT 40.6 % (39.0-53.0); HDW 2.99; HGB 12.4 gm/dL (13.0-17.5); Hypochromasia Moderate; Luc # (Auto) 0.18; Luc % (Auto) 1; Lymphocytes # (A) 0.6 k/uL (1.0-4.8); Lymphocytes % (A) 3 %; MCH 25.6 pg (25.0-35.0); MCHC 30.6 g/dL (31.0-37.0); MCV 83.6 fL (80.0-100.0); Mean Platelet Volume 7.2; Monocytes # (A) 0.9 k/uL (0-1.0); Monocytes % (A) 4 %; Neutrophils # (A) 20.6 k/uL (1.3-7.7); Neutrophils % (A) 92 %; RBC 4.86 m/uL (4.30-5.90); RDW 15.9 % (11.5-15.5); WBC 22.3 k/uL (3.8-10.6); WBC (Perox) 23.65
[2016-09-11] MEDS: PANTOPRAZOLE 40 MG/10 ML VIAL IVP SCH ×2 (14:35→21:13)
[2016-09-11 17:18] LABS: Glucose,Whole Blood 153 mg/dL (75-99)
--- NOTE | 2016-09-11 20:19 | PN ---
DATE OF SERVICE: 09/11/2016 This 51-year-old gentleman presented with multiple medical problems including shortness of breath and cough, is being closely monitored. Patient also complains of gastrointestinal bleed. Gastroenterology consultation. No chest pain, no palpitations. No fever. Patient complaining of lower gastrointestinal bleeding at this time. On exam, alert and oriented x3. Pulse 75, blood pressure 130/77, respirations 19, temperature 97.6, pulse ox 94% on room air. HEENT: Conjunctivae normal. NECK: No jugular venous distention. CARDIOVASCULAR: S1 and S2, muffled. RESPIRATORY: Breath sounds diminished at the bases. A few scattered rhonchi. No crackles. ABDOMEN: Soft, nontender. LEGS: No edema, no swelling. NERVOUS SYSTEM: No focal deficits. LABS: WBC 20.3 and other labs are noted. ASSESSMENT: 1. Chest pain, possible unstable angina. Acute coronary syndrome ruled out. 2. Chronic obstructive pulmonary disease acute exacerbation, acute purulent tracheobronchitis. 3. Possible lower gastrointestinal bleeding. 4. Increased cough. 5. Increased WBC. 6. Remote history of nicotine dependence. 7. Hyperlipidemia. 8. History of gastroesophageal reflux disease. 9. History of degenerative joint disease. 10. History of cholecystectomy. 11. History of cardiac catheterization. 12. FULL CODE. RECOMMENDATIONS AND DISCUSSION: In this 51-year-old gentleman who presented with multiple complex medical issues, will monitor the patient closely. Continue the current medications, symptomatic treatment. Await Gastroenterology consultation for lower GI bleed. Otherwise, guarded prognosis because of multiple complex medical issues. Further recommendations to follow.
[2016-09-11] MEDS: ALPRAZolam 0.25 MG TAB PO PRN (21:13)
[2016-09-11 21:24] LABS: Glucose,Whole Blood 141 mg/dL (75-99)
[2016-09-12] MEDS: methylPREDNISolone SOD SUCCI 125 MG/2 ML VIAL IV SCH ×3 (06:38→17:47)
[2016-09-12 07:28] LABS: Glucose,Whole Blood 129 mg/dL (75-99)
[2016-09-12 08:14] LABS: Basophils # (A) 0.1 k/uL (0-0.2); Basophils % (A) 0 %; CH 25.8; CHCM 30.6; Eosinophils % (A) 0 %; HCT 44.5 % (39.0-53.0); HDW 2.92; HGB 13.2 gm/dL (13.0-17.5); Hypochromasia Moderate; Luc # (Auto) 0.15; Luc % (Auto) 1; Lymphocytes # (A) 0.8 k/uL (1.0-4.8); Lymphocytes % (A) 3 %; MCH 25.2 pg (25.0-35.0); MCHC 29.8 g/dL (31.0-37.0); MCV 84.6 fL (80.0-100.0); Mean Platelet Volume 7.2; Monocytes % (A) 4 %; Neutrophils # (A) 22.4 k/uL (1.3-7.7); Neutrophils % (A) 92 %; RBC 5.25 m/uL (4.30-5.90); RDW 15.7 % (11.5-15.5); WBC 24.3 k/uL (3.8-10.6); WBC (Perox) 24.92
[2016-09-12] MEDS: IPRATROPIUM-ALBUTEROL 3 ML NEB INHALATION SCH ×3 (09:35→19:37)
[2016-09-12] MEDS: FORMOTEROL FUMARATE 20 MCG/2 ML NEBU INHALATION SCH ×2 (09:35→19:37)
[2016-09-12] MEDS: INSULIN LISPRO (humaLOG) 300 UNIT/3 ML VIAL SQ SCH ×4 (09:36→21:47)
[2016-09-12] MEDS: BUDESONIDE 1 MG/2 ML NEBU INHALATION SCH ×2 (09:36→19:37)
[2016-09-12] MEDS: LORATADINE 10 MG TAB PO SCH (09:38)
[2016-09-12] MEDS: ASPIRIN 325 MG TAB PO SCH (09:38)
[2016-09-12] MEDS: PANTOPRAZOLE 40 MG/10 ML VIAL IVP SCH ×2 (09:38→21:47)
[2016-09-12] MEDS: ATORVASTATIN 10 MG TAB PO SCH (09:38)
--- NOTE | 2016-09-12 10:09 | DS ---
DATE OF ADMISSION: 09/08/2016 DATE OF DISCHARGE: 09/08/2016 FINAL DIAGNOSIS(ES): 1. Chest pain, possible unstable angina, acute coronary syndrome ruled out. 2. Chronic obstructive pulmonary disease exacerbation, acute purulent tracheobronchitis. 3. Incessant cough, improved. 4. Increased WBC. 5. Remote history of nicotine dependence. 6. Hyperlipidemia. 7. History of gastroesophageal reflux disease. 8. History of degenerative joint disease. 9. History of cholecystectomy. 10. History of cardiac catheterization. 11. FULL CODE. DISCHARGE DISPOSITION: The patient will be discharged in stable. Discharge cleared by Dr. Calles. Outpatient follow-up recommended by Dr. Calles. HISTORY OF PRESENT ILLNESS: This 51 -year-old gentleman admitted with chest pain, shortness of breath and cough and other multiple medical problems, the patient treated empirically with bronchodilators. Patient improved significantly. Cardiology saw the patient, recommended outpatient follow-up. A 2-D echo and Doppler was also done which showed normal ejection fraction 55 to 60%. Exam, vitals are stable. CARDIOVASCULAR SYSTEM: S1, S2 muffled. ABDOMEN: Soft. Nervous system: No focal deficits. DISCHARGE ADVICE AND MEDICATIONS: 1. Diet is cardiac. 2. Activity limited until follow-up. 3. Follow-up with Dr. Nicho Frances in 2 to 3 days. 4. Follow-up with Dr. Calles as advised. 5. Albuterol 1 to 2 puffs q.4h p.r.n. 6. Symbicort 160/4.5, 2 puffs b.i.d. 7. Ceftin 500 mg p.o. b.i.d. for one week. 8. zyretec 10 mg p.o. daily. 9. esmoprazole. 20 mg p.o. daily. 10. Multivitamin one p.o. daily. 11. Sudafed bid. 12.zinc 50 mg daily 13. Solu-Medrol Dosepak. MTDD
--- NOTE | 2016-09-12 12:34 | P.PN ---
Subjective Progress note dated 09/10/2016 X This is a 51-year-old gentleman who we saw yesterday in consultation. He presented to the emergency department with complaints of chest pain cough shortness of breath. He apparently has cough syncope. Doing much better today. He is seeing Dr. Auguste in the past. He does need follow-up and pulmonary. I told him that he should probably stay 1 more day for additional steroids bronchodilators, etc. The Tessalon Perles and also the Tussionex seem to be helping his cough. His is at the bedside. Progress note dated 09/11/2016 This is a 51-year-old white male seen in consultation 2 days ago. The patient is doing a bit better. Is seeing Dr. Hale in the past. Apparently had pulmonary function test was told that everything was okay. He came with him with an episode about like a bronchitis with reactive bronchospasm and bronchial inflammation. Also sounds based on his cough they may have a component of tracheal bronchomalacia. States he gets sick about twice a year. The patient is well enough to go home today. The patient should be discharged home on some antibiotics and some steroids. I would also recommend a inhaler such as Symbicort to Advair or Breo which is a combination inhaled corticosteroid and long-acting beta agonist. He should also be discharged home on a rescue inhaler an updraft machine. 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 The patient is ready for discharge to the pulmonary standpoint as he was yesterday. Apparently started developing some rectal bleeding from hemorrhoids. 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 The patient does have an appointment to follow will be in the office. We talked about possible methacholine challenge test and/or bronchoscopy in the future. Objective - Vital Signs Vital signs: Vital Signs Temp 96.7 F L 09/12/16 07:00 Pulse 76 09/12/16 09:48 Resp 18 09/12/16 07:00 BP 131/74 09/12/16 07:00 Pulse Ox 94 L 09/12/16 07:00 Intake & Output 09/11/16 09/12/1609/12/17 18:59 06:59 18:59 Output Total 450 Balance -450 Output: Urine 450 Other: Voiding Method Toilet # Voids 3 1 # Bowel Movements 1 - Exam No acute distress, oriented 3. HEENT examination is grossly unremarkable. Mucous membranes are moist. There are no oral lesions. Neck supple. Full range of motion. No adenopathy. Neck veins are flat. Cardiovascular examination reveals regular rhythm rate. S1-S2 normal. Lungs reveal some coarse expiratory rhonchi which have improved. Breath sounds have improved. No expiratory wheezes. No crackles. He does have one bile and cough while was in the room. Abdomen soft Extremities are intact. No edema - Labs CBC & Chem 7: 09/12/16 07:59 09/08/16 13:30 Labs: Abnormal Lab Results - Last 24 Hours (Table) 09/11/16 09/11/16 09/11/16 Range/Units 13:01 17:16 21:21 WBC 22.3 H (3.8-10.6) k/uL Hgb 12.4 L (13.0-17.5) gm/dL MCHC 30.6 L (31.0-37.0) g/dL RDW 15.9 H (11.5-15.5) % Plt Count 559 H (150-450) k/uL Neutrophils # 20.6 H (1.3-7.7) k/uL Lymphocytes # 0.6 L (1.0-4.8) k/uL POC Glucose (mg/dL) 153 H 141 H (75-99) mg/dL 09/12/16 09/12/16 Range/Units : 07:59 WBC 24.3 H (3.8-10.6) k/uL Hgb (13.0-17.5) gm/dL MCHC 29.8 L (31.0-37.0) g/dL RDW 15.7 H (11.5-15.5) % Plt Count 605 H (150-450) k/uL Neutrophils # 22.4 H (1.3-7.7) k/uL Lymphocytes # 0.8 L (1.0-4.8) k/uL POC Glucose (mg/dL) 129 H (75-99) mg/dL Assessment and Plan (1) COPD exacerbation Status: Acute Plan: Plan This patient will receive a 2 pronged therapy. Initially he'll be given bronchodilators steroids antibiotics and so forth to help with the acute process. Subsequent to that he'll need to be seen in the office at which time he'll need a 6 minute walk distance a chest x-ray and a pulmonary function test. In fact he did have a PFT with Dr. Auguste that was normal, we might consider methacholine challenge test. Finally, to document his tracheal bronchomalacia, a bronchoscopy may be in order. Plan dated 09/10/2016 The patient seems to be doing better. Can be discharged tomorrow. Should be sent home on a short course of antibiotics and some prednisone with a burst and taper. In addition, he will need follow-up in the office. He has seen Dr. Auguste in the past. He should have a pulmonary function tests or recently done , and normal, and methacholine challenge test. In addition, he may benefit from bronchoscopy to evaluate the potential for tracheal bronchomalacia. Finally he should be discharged home on all the usual medications. Plan dated 09/11/2016 The patient is doing better. The patient could be discharged home today. The patient may benefit from a methacholine challenge test and/or bronchoscopy with airway examination in the future. The patient will follow with me in the office. The patient should be discharged home on some prednisone with a burst and taper 40 for 4 days, 30 mg for 4 days, 20 mg for 4 days, and, 10 mg 4 days and stop. The patient should also go home on some sort of oral antibiotic for about 7-10 days. In addition, the patient would benefit from a rescue medication such as albuterol inhaler 2 puffs when necessary as well as a combination inhaler such as Advair, Symbicort, do JOSESITO, Briel, which is a combination inhaled corticosteroid and long-acting beta agonist. Plan dated 09/12/2016 The plan for the pulp from the pulmonary standpoint was outlined yesterday. Please see my plan from 09/11/2016. The patient was only kept in the hospital longer because the patient apparently has some Hemorrhoidal bleeding. Anyway for the pulmonary standpoint patient could be discharged home. We'll follow with up with him in the office. Time with Patient: Less than 30
[2016-09-12 12:44] LABS: Glucose,Whole Blood 109 mg/dL (75-99)
[2016-09-12] MEDS: MULTIVITAMINS, THERA 1 EACH TAB PO SCH (12:52)
[2016-09-12] MEDS: ZINC GLUCONATE 50 MG TAB PO SCH (12:52)
[2016-09-12 17:21] LABS: Glucose,Whole Blood 123 mg/dL (75-99)
[2016-09-12 20:55] LABS: Glucose,Whole Blood 150 mg/dL (75-99)
[2016-09-12] MEDS: ALPRAZolam 0.25 MG TAB PO PRN (21:51)
[2016-09-12] MEDS: predniSONE 20 MG TAB PO SCH (21:51)
[2016-09-13 07:19] LABS: Glucose,Whole Blood 130 mg/dL (75-99)
[2016-09-13 07:32] VITALS: BP 118/77; RESP 18; TEMP 96.7
[2016-09-13] MEDS: BUDESONIDE 1 MG/2 ML NEBU INHALATION SCH (08:21)
[2016-09-13] MEDS: FORMOTEROL FUMARATE 20 MCG/2 ML NEBU INHALATION SCH (08:21)
[2016-09-13] MEDS: IPRATROPIUM-ALBUTEROL 3 ML NEB INHALATION SCH ×2 (08:21→13:03)
--- NOTE | 2016-09-13 08:35 | PN ---
DATE OF SERVICE: 09/12/2016 This 51-year-old gentleman was admitted with chest pain, also had chronic obstructive pulmonary disease and also has GI complaints and GI bleed also. Dr. Feliz has seen the patient and recommended psychiatry consultation. No chest pain, no palpitations. No fever. On exam, alert and oriented x3. Pulse is 74, blood pressure 120/74, respirations 18, temperature 96.6, pulse ox 94% on room air. HEENT: Conjunctivae normal. NECK: No jugular venous distention. CARDIOVASCULAR: S1 and S2, muffled. RESPIRATORY: Breath sounds diminished at the bases. A few bilateral scattered rhonchi and crackles. Expiratory wheezing also present. ABDOMEN: Soft, nontender. LEGS: No edema, no swelling. NERVOUS SYSTEM: No focal deficits. LABS: WBC 24.3, hemoglobin 13.2. Accu-Cheks noted. ASSESSMENT: 1. Chest pain, possible unstable angina. Acute coronary syndrome ruled out. 2. Chronic obstructive pulmonary disease, acute exacerbation, with acute purulent tracheobronchitis possibly. 3. Possible lower gastrointestinal bleeding. 4. Increased cough. 5. Increased WBC. 6. Remote history of nicotine dependence. 7. Hyperlipidemia. 8. History of gastroesophageal reflux disease. 9. History of degenerative joint disease. 10. History of cholecystectomy. 11. History of cardiac catheterization. 12. FULL CODE. RECOMMENDATIONS AND DISCUSSION: In this 51-year-old gentleman who presented with multiple complex medical issues. Will monitor the patient closely. Continue the current medications, continue symptomatic treatment. Continue with the bronchodilators. Taper the steroids. Closely follow with Dr. Calles. Guarded prognosis because of multiple complex medical issues. Further recommendations to follow.
[2016-09-13] MEDS: INSULIN LISPRO (humaLOG) 300 UNIT/3 ML VIAL SQ SCH ×2 (08:50→13:50)
[2016-09-13] MEDS: ATORVASTATIN 10 MG TAB PO SCH (08:51)
[2016-09-13] MEDS: ASPIRIN 325 MG TAB PO SCH (08:51)
[2016-09-13] MEDS: PANTOPRAZOLE 40 MG/10 ML VIAL IVP SCH (08:53)
[2016-09-13] MEDS: LORATADINE 10 MG TAB PO SCH (08:53)
[2016-09-13] MEDS: predniSONE 20 MG TAB PO SCH (08:53)
--- NOTE | 2016-09-13 11:07 | P.GSCN ---
History of Present Illness Consult date: 09/13/16 Reason for Consult: Bleeding hemorrhoids History of present illness: Patient admitted for chest pain. Was initially thought to possibly have a cardiac issue. Was on blood thinners. Patient then appeared to have pulmonary source of his pain. He has a history of bleeding hemorrhoids. He says he bleeds every few weeks. Bright red in color. Usually not intermixed with the stool. Because of bleeding during this hospitalization we are asked to evaluate. Patient has mild perianal discomfort at times. He had a recent colonoscopy in April which showed only hemorrhoids. Review of Systems The patient denies any acute changes in his vision or hearing, no dysphagia or odynophagia, no chest pain or shortness of breath, no dysuria or hematuria, no headache, no runny nose, no melena, no unexplained weight loss Past Medical History Past Medical History: COPD, GERD/Reflux, Osteoarthritis (OA) History of Any Multi-Drug Resistant Organisms: None Reported Past Surgical History: Cholecystectomy, Heart Catheterization Past Psychological History: No Psychological Hx Reported Smoking Status: Former smoker Past Alcohol Use History: Occasional Past Drug Use History: None Reported - Past Family History Mother Family Medical History: COPD, GERD/Reflux, Hypertension Additional Family Medical History / Comment(s): Glaucoma, staph infection Father Family Medical History: Coronary Artery Disease (CAD) Additional Family Medical History / Comment(s): Cancer-skin, stents placed Medications and Allergies Home Medications Medication Instructions Recorded Confirmed Type Cetirizine HCl [Zyrtec] 10 mg PO DAILY 09/08/16 09/08/16 History Esomeprazole Magnesium [NexIUM] 20 mg PO DAILY PRN 09/08/16 09/08/16 History Multivitamins, Thera [Multivitamin] 1 tab PO DAILY 09/08/16 09/08/16 History Pseudoephedrine 12Hr [Sudafed 12 120 mg PO Q12H PRN 09/08/16 09/08/16 History Hour] Zinc 50 mg PO DAILY 09/08/16 09/08/16 History Allergies Allergy/AdvReac Type Severity Reaction Status Date / Time No Known Allergies Allergy Verified 09/08/16 13:36 Surgical - Exam Vital Signs Temp Pulse Resp BP Pulse Ox 97 F L 56 L 18 134/92 99 09/08/16 13:09 09/08/16 13:09 09/08/16 13:09 09/08/16 13:09 09/08/16 13:09 Physical exam: General: Well-developed, well-nourished HEENT: Normocephalic, sclerae nonicteric Abdomen: Nontender, nondistended Extremities: No edema Neuro: Alert and oriented Rectal: Small amount of blood around the anus, small internal and external hemorrhoids noted, exact site of bleeding not seen. Results - Labs 09/12/16 07:59 09/08/16 13:30 Abnormal Lab Results - Last 24 Hours (Table) 09/12/16 09/12/16 09/12/16 Range/Units 12:40 17:14 20:53 POC Glucose (mg/dL) 109 H 123 H 150 H (75-99) mg/dL 09/13/16 Range/Units 06:55 POC Glucose (mg/dL) 130 H (75-99) mg/dL Assessment and Plan (1) Bleeding hemorrhoids Narrative/Plan: Continue high fiber diet. Patient may require elective hemorrhoidectomy. This does not require ongoing hospitalization. Patient should follow up with me in the office in 1-2 weeks. Status: Acute
[2016-09-13 12:14] LABS: Glucose,Whole Blood 136 mg/dL (75-99)
[2016-09-13 13:14] VITALS: PULSE 88
[2016-09-13] MEDS: ZINC GLUCONATE 50 MG TAB PO SCH (13:50)
[2016-09-13] MEDS: MULTIVITAMINS, THERA 1 EACH TAB PO SCH (13:50)
--- NOTE | 2016-09-14 18:24 | DS ---
DATE OF ADMISSION: 09/08/2016 DATE OF DISCHARGE: 09/13/2016 This 51-year-old gentleman admitted with chest pain as well as chronic obstructive pulmonary disease also had lower GI bleed secondary to hemorrhoids. Seen and evaluated the patient. On exam vital signs are stable. CARDIOVASCULAR SYSTEM: S1. S2. n. RESPIRATORY: A few rhonchi. ABDOMEN: Soft. CENTRAL NERVOUS SYSTEM: No focal deficits. The patient seen by Dr. Barnhart and recommended outpatient follow-up. Please refer to my previous dictation for other discharge diagnoses and as well as list of medications. MTDD
== END 2016-09-13 13:50 | disposition home or self-care (01) ==
LOC: EC 13:03 → 6SEL 16:08 → INTOOBSV 16:08 → 6SEL 19:38 → 4MS4W 09-09 14:52
PROVIDERS: ADMIT Internal Medicine; ATTEND Internal Medicine
DX: J44.0 Chronic obstructive pulmonary disease with (acute) lower respiratory infection (principal); E78.5 Hyperlipidemia, unspecified; J20.9 Acute bronchitis, unspecified; J44.1 Chronic obstructive pulmonary disease with (acute) exacerbation; K21.9 Gastro-esophageal reflux disease without esophagitis; K64.8 Other hemorrhoids; K64.4 Residual hemorrhoidal skin tags; M19.90 Unspecified osteoarthritis, unspecified site; Z87.891 Personal history of nicotine dependence; Z82.49 Family history of ischemic heart disease and other diseases of the circulatory system; R07.89 Other chest pain; Z79.52 Long term (current) use of systemic steroids; Z79.2 Long term (current) use of antibiotics; Z79.899 Other long term (current) drug therapy
CPT/HCPCS: 96360; 96361; 99285; 36415; 94640 ×11; 94760 ×2; 93005; 93306; 85379; 80061; 80053; 82150; 83036; 82550 ×2; 82553 ×2; 83690; 83735; 84484 ×2; 85025 ×3; 85610; 85730 ×2; 81003; 71020; 71275; G0378 ×6; J1644 ×2; J2930 ×5; Q9967; J0696 ×5; J7512 ×2; C9113 ×3; 96366; 96367; 96375; 96376

== ENCOUNTER → 2016-09-15 | Outpatient (CLI) | payer OTHER ==
[2016-09-15 12:27] LABS: Basophils # (A) 0.1 k/uL (0-0.2); Basophils % (A) 0 %; CH 25.8; CHCM 31.4; Eosinophils % (A) 0 %; HDW 2.88; HGB 14.2 gm/dL (13.0-17.5); Hypochromasia Slight; Luc # (Auto) 0.19; Luc % (Auto) 1; Lymphocytes % (A) 6 %; MCHC 30.3 g/dL (31.0-37.0); MCV 82.5 fL (80.0-100.0); Mean Platelet Volume 7.1; Monocytes # (A) 0.7 k/uL (0-1.0); Monocytes % (A) 4 %; Neutrophils # (A) 16.5 k/uL (1.3-7.7); Neutrophils % (A) 89 %; RDW 15.6 % (11.5-15.5); WBC 18.5 k/uL (3.8-10.6); WBC (Perox) 19.05
[2016-09-15 12:41] LABS: Anion Gap 13 mmol/L; Blood Urea Nitrogen 18 mg/dL (9-20); Calcium 9.2 mg/dL (8.4-10.2); Carbon Dioxide 24 mmol/L (22-30); Chloride 99 mmol/L (98-107); Glucose 118 mg/dL (74-99); Non-African American GFR(MDRD) >60 (>60 ml/min/1.73 sqM); Potassium 4.4 mmol/L (3.5-5.1); Sodium 136 mmol/L (137-145)
== END | disposition home or self-care (01) ==
LOC: LABWHC1 12:02
PROVIDERS: ATTEND Nurse Practitioner
DX: J44.1 Chronic obstructive pulmonary disease with (acute) exacerbation (principal)
CPT/HCPCS: 36415; 80048; 85025

== ENCOUNTER → 2016-09-22 | Outpatient (CLI) | payer OTHER ==
[2016-09-25 05:02] LABS: Immunoglobulin G 694 mg/dL (700 - 1600)
== END | disposition home or self-care (01) ==
LOC: LABWHC1 11:26
PROVIDERS: ATTEND Internal Medicine Critical Care Medicine
DX: J98.09 Other diseases of bronchus, not elsewhere classified (principal)
CPT/HCPCS: 36415; 82784; 82785

== ENCOUNTER 2016-10-01 09:27 | Day surgery (SDC) | payer OTHER ==
[2016-09-29 14:55] VITALS: BMI 29.2
[~2016-10-01 09:27] MED LIST: HYDROmorphone 1 MG/ML 1 ML SYRINGE IVP PRN; LACTATED RINGERS 1,000 ML IV SCH; LIDOCAINE 1% 20 ML VIAL (10MG/ML) FOR IV START INTRADERMA PRN; MIDAZOLAM 2 MG/2 ML VIAL IV PRN; Pre Op ABX Message 1 EACH MISC MISCELLANE ONE
[2016-10-01 10:26] VITALS: TEMP 97
[2016-10-01] MEDS ORDERED: ATROPINE SULFATE 0.4 MG/ML 1 ML VIAL IM ONE (10:34)
[2016-10-01] MEDS ORDERED: LIDOCAINE 2% (PF) 20 MG/ML 10ML INHALATION STA (10:37)
[2016-10-01] MEDS ORDERED: fentaNYL (PF) 50 MCG/ML 2 ML AMP ONE (11:10)
[2016-10-01] MEDS ORDERED: MIDAZOLAM 2 MG/2 ML VIAL ONE (11:10)
[2016-10-01] MEDS ORDERED: GLYCOPYRROLATE 0.2 MG/ML 2 ML VIAL ONE (11:10)
[2016-10-01] MEDS ORDERED: PROPOFOL 10 MG/ML 20 ML VIAL IV ONE (11:10)
[2016-10-01] MEDS ORDERED: KETAMINE 10 MG/ML 20 ML VIAL ONE (11:10)
[2016-10-01] MEDS ORDERED: LIDOCAINE 1% INJ 10MG/ML (20 ML MDV) ONE (11:10)
[2016-10-01] MEDS ORDERED: LIDOCAINE 2% INJ 20 MG/ML INTRATRACH ONE (11:33)
[2016-10-01 11:55] VITALS: BP 129/85; PULSE 90; RESP 18
[2016-10-01 19:20] LABS: RBC, Body Fluid 9950 /uL
--- NOTE | 2016-10-01 20:50 | PCN ---
DATE OF PROCEDURE: PREPROCEDURE DIAGNOSIS (ES): Tracheobronchomalacia. POSTPROCEDURE DIAGNOSIS (ES): Tracheobronchomalacia. PROCEDURE PERFORMED: Bronchoscopy, airway examination, therapeutic lavage, BAL right middle lobe. There was informed consent. There was universal timeout. Tata Cordon GIOVANI provided IV conscious sedation. After the patient was adequately sedated and being fully monitored, the bronchoscope was inserted through the right nostril. It passed through the right nasopharynx into the oropharynx. The hypopharynx was identified and topicalized. The hypopharyngeal structures, including anterior commissure, true cords, false cords, arytenoids, piriform sinuses, right and left vallecula and epiglottis all appeared normal. There was minimal amount of epistaxis. After topicalization of the glottic opening, the bronchoscope was pushed through the glottic opening into the trachea. There was some modest tracheomalacia. No secretions noted in the trachea. Tracheal austin was sharp. Right and left mainstem were topicalized. The right upper lobe and its 3 segments, the right middle lobe and its 2 segments, the right lower lobe and its 5 segments, the left upper lobe proper and its 2 segments, the lingula and its 2 segments as well as the left lower lobe and its 4 segments all had similar findings of very mild diffuse bronchitis. There was some mucosal hyperemia and erythema. The mucosa bled a bit. Not a lot. No dominant mass or tumor. Anyway, the bronchoscope was wedged into the right middle lobe. BAL took place. Of note was the fact that there was a moderate degree of bronchomalacia noted. The patient, we did take a picture of that. After bronchi the BAL was done, the bronchoscope was withdrawn. The patient will be recovered.
== END 2016-10-01 12:16 | disposition home or self-care (01) ==
LOC: ORWHC2ENDO 09:27
PROVIDERS: ATTEND Internal Medicine Critical Care Medicine
DX: J98.09 Other diseases of bronchus, not elsewhere classified (principal); J39.8 Other specified diseases of upper respiratory tract; J44.9 Chronic obstructive pulmonary disease, unspecified; K21.9 Gastro-esophageal reflux disease without esophagitis; Z87.891 Personal history of nicotine dependence; Z79.899 Other long term (current) drug therapy
CPT/HCPCS: 94640; 87798 ×4; 87496; 87498; 87529 ×2; 88108; 88305; 89050; 87252; 87502; 87070; 87205; 87116; 87102; 87206; 31624; J2001 ×3; J2250; J0461; J3010; J2704; 99153

== ENCOUNTER → 2016-10-22 | Outpatient (CLI) | payer OTHER ==
[2016-10-22 16:52] LABS: Clam IgE 4.21 kU/L; Egg White IgE <0.10 kU/L; Peanut IgE <0.10 kU/L; Soybean IgE <0.10 kU/L
[2016-10-30 16:09] LABS: Mis test requested (Blood) Hypersens.Pneum.Eval
== END | disposition home or self-care (01) ==
LOC: LABWHC1 08:43
PROVIDERS: ATTEND Internal Medicine Critical Care Medicine
DX: J44.9 Chronic obstructive pulmonary disease, unspecified (principal); R05 Cough; T78.40XA Allergy, unspecified, initial encounter
CPT/HCPCS: 36415; 82785; 85008; 86001; 86003; 86606; 86609; 86612; 86635; 86698

== ENCOUNTER 2017-11-22 10:02 | Emergency (ER) | payer OTHER ==
[2017-11-22] MEDS ORDERED: PROPARACAINE 0.5% OPHTH DROPS 15 ML BTL ONE (10:37)
[2017-11-22] MEDS ORDERED: TOBRAMYCIN 0.3% OPHTH DROPS 5 ML BTL RIGHT EYE STA (10:53)
--- NOTE | 2017-11-22 10:56 | ED ---
General Adult HPI - General Chief complaint: Eye Problems Stated complaint: Fb in eye Time Seen by Provider: 11/22/17 10:21 Source: patient, RN notes reviewed, old records reviewed Mode of arrival: ambulatory Limitations: no limitations - History of Present Illness Initial comments: This is a 52-year-old male the ER for evaluation regarding possible foreign body right eye. 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 He does have mild pain now no change in vision. Patient states he is unsure he has lots tenderness but is refusing tetanus here today. Patient states he flushed his eye with copious fluid was unable to get adequate relief - Related Data Home Medications Medication Instructions Recorded Confirmed Cetirizine HCl [Zyrtec] 10 mg PO DAILY 09/08/16 11/22/17 Docusate [Colace] 100 mg PO DAILY 11/22/17 11/22/17 Multivit-Min/FA/Lycopen/Lutein 1 tab PO DAILY 11/22/17 11/22/17 [Centrum Silver Men Tablet] Saw [place] 160 mg PO DAILY 11/22/17 11/22/17 Allergies Allergy/AdvReac Type Severity Reaction Status Date / Time No Known Allergies Allergy Verified 11/22/17 10:17 Review of Systems ROS Statement: Those systems with pertinent positive or pertinent negative responses have been documented in the HPI. ROS Other: All systems not noted in ROS Statement are negative. Past Medical History Past Medical History: COPD, GERD/Reflux, Osteoarthritis (OA) History of Any Multi-Drug Resistant Organisms: None Reported Past Surgical History: Cholecystectomy, Heart Catheterization Past Psychological History: No Psychological Hx Reported Smoking Status: Former smoker Past Alcohol Use History: Occasional Past Drug Use History: None Reported - Past Family History Mother Family Medical History: COPD, GERD/Reflux, Hypertension Additional Family Medical History / Comment(s): Glaucoma, staph infection Father Family Medical History: Coronary Artery Disease (CAD) Additional Family Medical History / Comment(s): Cancer-skin, stents placed General Exam Limitations: no limitations General appearance: alert, in no apparent distress Head exam: Present: atraumatic, normocephalic, normal inspection Eye exam: Present: normal appearance, PERRL, EOMI, other (The patient does have a foreign body right eye, midline in eyelid as well as 12:00 addition). Absent : scleral icterus, conjunctival injection, periorbital swelling ENT exam: Present: normal exam, mucous membranes moist Neck exam: Present: normal inspection. Absent: tenderness, meningismus, lymphadenopathy Respiratory exam: Present: normal lung sounds bilaterally. Absent: respiratory distress, wheezes, rales, rhonchi, stridor Cardiovascular Exam: Present: regular rate, normal rhythm, normal heart sounds. Absent: systolic murmur, diastolic murmur, rubs, gallop, clicks GI/Abdominal exam: Present: soft, normal bowel sounds. Absent: distended, tenderness, guarding, rebound, rigid Extremities exam: Present: normal inspection, full ROM, normal capillary refill. Absent: tenderness, pedal edema, joint swelling, calf tenderness Back exam: Present: normal inspection Neurological exam: Present: alert, oriented X3, CN II-XII intact Psychiatric exam: Present: normal affect, normal mood Skin exam: Present: warm, dry, intact, normal color. Absent: rash Course Vital Signs 11/22/17 10:07 Temperature 98.2 F Pulse Rate 73 Respiratory 16 Rate Blood Pressure 136/87 O2 Sat by Pulse 99 Oximetry - Reevaluation(s) Reevaluation #1: 11/22/17 10:54 Patient's pain is improved with proparacaine medication Procedures - Procedures Initial comment: Eye foreign body removal FLuorescein stain, proparacaine for anesthesia Foreign body is removed both 1 and eyelid lower eyelid as well as at 12 o'clock position, medical Medical Decision Making - Medical Decision Making 82 male the ER with right eye foreign body piece of metal, patient refusing tetanus shot. Patient for bodies removed here in the emergency room under direct visualization, patient can be discharged home Disposition Clinical Impression: Foreign body in eyeball, right, Corneal abrasion Disposition: HOME SELF-CARE Condition: Good Instructions: Eye Foreign Body (ED), Corneal Abrasion (ED) Referrals: Nonstaff,Physician [Primary Care Provider] - 1-2 days
[2017-11-22] MEDS ORDERED: PROPARACAINE 0.5% OPHTH DROPS 15 ML BTL RIGHT EYE STA (11:22)
[2017-11-22 11:40] VITALS: BP 119/76; PULSE 58; RESP 17; TEMP 97.6
== END 2017-11-22 11:45 | disposition home or self-care (01) ==
LOC: EC 10:02
DX: T15.01XA Foreign body in cornea, right eye, initial encounter (principal); Z87.891 Personal history of nicotine dependence; Z79.899 Other long term (current) drug therapy; Y92.69 Other specified industrial and construction area as the place of occurrence of the external cause; Y99.0 Civilian activity done for income or pay
CPT/HCPCS: 99283

== ENCOUNTER 2017-12-30 09:07 | Emergency (ER) | payer OTHER ==
[2017-12-30] MEDS ORDERED: PROMETHAZ-COD 6.25-10 MG/5 ML 5 ML CUP PO STA (09:32)
--- NOTE | 2017-12-30 09:35 | ED ---
URI HPI - General Chief Complaint: Upper Respiratory Infection Stated Complaint: Cough, Pneumonia Time Seen by Provider: 12/30/17 09:15 Source: patient, RN notes reviewed Mode of arrival: ambulatory Limitations: no limitations - History of Present Illness Initial Comments: This is a 52-year-old male presents emergency Department chief complaint cough and congestion. Patient states that he has recurrent issues. Patient states she sees Dr. Kelley. Patient states he was on antibiotics up until last Wednesday. states that symptoms restarted on Wednesday and a progressive and worse. He states he has nasal drainage, postnasal drainage and a cough that is nonproductive. He states that he has tracheomalacia and states that he has severe ALLERGIES. Patient states he does have daily medications though does not take them. Patient had no fever no chills. His sensation mother states that she had influenza and pneumonia recently. Patient states that after he took the antibiotics he felt much better he had no symptoms. Patient denies any chest pain shortness of breath. - Related Data Home Medications Medication Instructions Recorded Confirmed Cetirizine HCl [Zyrtec] 10 mg PO DAILY 09/08/16 12/30/17 Docusate [Colace] 100 mg PO DAILY 11/22/17 12/30/17 Multivit-Min/FA/Lycopen/Lutein 1 tab PO DAILY 11/22/17 12/30/17 [Centrum Silver Men Tablet] Saw [place] 160 mg PO DAILY 11/22/17 12/30/17 Albuterol Nebulized [Ventolin 2.5 mg INHALATION RT-QID PRN 12/30/17 12/30/17 Nebulized] Pseudoephedrine HCl [Sudafed 240 mg PO DAILY PRN 12/30/17 12/30/17 24-Hour] Previous Rx's Medication Instructions Recorded Levofloxacin [Levaquin] 500 mg PO DAILY #10 tab 12/30/17 Promethaz-Cod 6.25-10 mg/5 ml 5 ml PO Q6HR PRN #120 ml 12/30/17 [Phenergan with Codeine] predniSONE 50 mg PO DAILY #5 tab 12/30/17 Allergies Allergy/AdvReac Type Severity Reaction Status Date / Time No Known Allergies Allergy Verified 12/30/17 09:21 Review of Systems ROS Statement: Those systems with pertinent positive or pertinent negative responses have been documented in the HPI. ROS Other: All systems not noted in ROS Statement are negative. Past Medical History Past Medical History: COPD, GERD/Reflux, Osteoarthritis (OA) History of Any Multi-Drug Resistant Organisms: None Reported Past Surgical History: Cholecystectomy, Heart Catheterization Past Psychological History: No Psychological Hx Reported Smoking Status: Former smoker Past Alcohol Use History: Occasional Past Drug Use History: None Reported - Past Family History Mother Family Medical History: COPD, GERD/Reflux, Hypertension Additional Family Medical History / Comment(s): Glaucoma, staph infection Father Family Medical History: Coronary Artery Disease (CAD) Additional Family Medical History / Comment(s): Cancer-skin, stents placed General Exam Limitations: no limitations General appearance: alert, in no apparent distress Head exam: Present: atraumatic, normocephalic, normal inspection Eye exam: Present: normal appearance, PERRL, EOMI. Absent: scleral icterus, conjunctival injection, periorbital swelling ENT exam: Present: mucous membranes moist, TM's normal bilaterally, normal external ear exam. Absent: normal oropharynx (Pulses drainage) Neck exam: Present: normal inspection, full ROM. Absent: tenderness, meningismus, lymphadenopathy Respiratory exam: Present: normal lung sounds bilaterally. Absent: respiratory distress, wheezes, rales, rhonchi, stridor Cardiovascular Exam: Present: regular rate, normal rhythm, normal heart sounds. Absent: systolic murmur, diastolic murmur, rubs, gallop, clicks Skin exam: Present: warm, dry, intact, normal color. Absent: rash Course Vital Signs 12/30/17 09:10 Temperature 97.8 F Pulse Rate 74 Respiratory 20 Rate Blood Pressure 132/73 O2 Sat by Pulse 97 Oximetry Medical Decision Making - Medical Decision Making This is a 52-year-old male present emergency Department for cough congestion. There shows early signs of pneumonia on chest x-ray. Patient will be given Levaquin, steroids and which she will start if he has issues with wheezing, bronchospasms. He states she's taken steroids sometimes in the past. Patient also given a cough suppressant. He will follow up with his PCP in [place]. Return parameters were discussed. - Lab Data Lab Results 12/30/17 Range/Units 09:44 Influenza Type A RNA Not Detected (Not Detectd) Influenza Type B (PCR) Not Detected (Not Detectd) Disposition Clinical Impression: Pneumonia Disposition: HOME SELF-CARE Condition: Stable Instructions: Pneumonia (ED) Additional Instructions: Please return to the Emergency Department if symptoms worsen or any other concerns. Prescriptions: Levofloxacin [Levaquin] 500 mg PO DAILY #10 tab predniSONE 50 mg PO DAILY #5 tab Promethaz-Cod 6.25-10 mg/5 ml [Phenergan with Codeine] 5 ml PO Q6HR PRN #120 ml PRN Reason: Cough Is patient prescribed a controlled substance at d/c from ED?: Yes If prescribed controlled substance>3 days was MAPS reviewed?: No When asked, does pt state using other controlled substances?: No Referrals: Nicho Villalba MD [Primary Care Provider] - 1-2 days
--- NOTE | 2017-12-30 10:05 | XR ---
EXAMINATION TYPE: XR chest 2V DATE OF EXAM: 12/30/2017 COMPARISON: Prior chest x-ray 12/03/2017, 09/08/2016 HISTORY: Cough and pain TECHNIQUE: Frontal and lateral views of the chest are obtained. FINDINGS: There is no pleural effusion or pneumothorax seen. Question some patchy increased density at the left lung base. The cardiac silhouette size is within normal limits. The osseous structures are intact. IMPRESSION: Possible left lower lobe pneumonia versus atelectasis, correlate, follow-up recommended.
[2017-12-30 11:10] VITALS: BP 118/75; PULSE 78; RESP 18; TEMP 98.6
== END 2017-12-30 10:54 | disposition home or self-care (01) ==
LOC: EC 09:07
DX: J18.9 Pneumonia, unspecified organism (principal); Z95.5 Presence of coronary angioplasty implant and graft; Z79.899 Other long term (current) drug therapy; Z87.891 Personal history of nicotine dependence
CPT/HCPCS: 71046; 87502; 99283

== ENCOUNTER → 2018-11-30 | Outpatient (CLI) | payer BC ==
--- NOTE | 2018-11-30 08:12 | US ---
EXAMINATION TYPE: US abdomen complete DATE OF EXAM: 11/30/2018 COMPARISON: NONE CLINICAL HISTORY: 53-year-old male Abdominal Pain R10.84. Epigastric pain. TECHNIQUE: Multiple sonographic images of the abdomen are obtained. FINDINGS: COST ESTIMATING ENGINEER NOTES: Difficult and limited exam due to overlying bowel gas EXAM MEASUREMENTS: Liver Length: 14.5 cm Gallbladder: Surgically absent CBD: 0.4 cm Spleen: 8.9 cm Right Kidney: 12.0 x 5.2 x 5.1 cm Left Kidney: 11.3 x 5.4 x 5.2 cm Pancreas: No gross abnormality. Liver: Slightly coarsened in echotexture. No focal lesion. Gallbladder: Surgically absent Evidence for sonographic Saldaña's sign: No CBD: wnl as visualized, distal portion obscured by bowel gas Spleen: wnl Right Kidney: No hydronephrosis. Left Kidney: No hydronephrosis. Upper IVC: wnl Abd Aorta: Proximal portion obscured by bowel gas, visualized portions show no AAA IMPRESSION: 1. Slightly coarsened texture of the liver could be on a technical basis or could reflect nonspecific hepatocellular disease. Correlate with LFTs. 2. Status post cholecystectomy. No biliary ductal dilatation.
== END ==
LOC: RADUSWWP 06:48
PROVIDERS: ATTEND Nurse Practitioner Adult Health
DX: R10.84 Generalized abdominal pain (principal); Z90.49 Acquired absence of other specified parts of digestive tract
CPT/HCPCS: 76700

== ENCOUNTER 2019-07-18 11:55 | Emergency (ER) | payer BC, OTHER ==
[2019-07-18 12:08] VITALS: RESP 18
[2019-07-18] MEDS ORDERED: LIDOCAINE 1% INJ 10MG/ML (20 ML MDV) SQ STA (12:38)
[2019-07-18] MEDS ORDERED: ceFAZolin 1,000 MG VIAL (IM USE) IM STA (12:39)
--- NOTE | 2019-07-18 12:49 | XR ---
Second digit left hand HISTORY: Laceration, trauma and pain 3 views of the second digit left hand There is a comminuted tuft fracture second digit left hand, there is associated soft tissue defect co nsistent with patient's history of laceration. No evident dislocation. Small bone fragments are prese nt and felt more likely than previously foreign body. IMPRESSION: Comminuted tuft fracture second digit left hand.
[2019-07-18] MEDS ORDERED: CEPHALEXIN 500MG STARTER PACK 4 CAP BTL PO STA (13:26)
[2019-07-18] MEDS ORDERED: ACET/COD 300 MG/30 MG STARTER PACK 6 TAB BTL PO STA (13:26)
--- NOTE | 2019-07-18 13:26 | ED ---
General Adult HPI - General Source: patient, RN notes reviewed, old records reviewed Mode of arrival: ambulatory Limitations: no limitations <Wilber Chou - Last Filed: 07/18/19 13:23> <Lluvia Morales - Last Filed: 07/20/19 00:55> - General Chief complaint: Wound/Laceration Stated complaint: Finger laceration-[facility] Time Seen by Provider: 07/18/19 12:20 - History of Present Illness Initial comments: 54-year-old male patient no pertinent past medical history presents ED with left next finger laceration. Patient reports that he was using a table saw accidentally cut off the tip of his finger. Denies any other injury. Reports her tetanus is up-to-date within last 5 years. Denies any other complaints. Systemic: Pt denies fatigue, fever/chills, rash. Pt denies weakness, night sweats, weight loss. Neuro: Pt denies headache, visual disturbances, syncope or pre-syncope. HEENT: Pt denies ocular discharge or irritation, otalgia, rhinorrhea, pharyngitis or notable lymphadenopathy. Cardiopulmonary: Pt denies chest pain, SOB, heart palpitations, dyspnea on exertion. Abdominal/GI: Pt denies abdominal pain, n/v/d. : Pt denies dysuria, burning w/ urination, frequency/urgency. Denies new onset urinary or bowel incontinence. MSK: Pt denies myalgia, loss of strength or function in extremities. Neuro: Pt denies new onset weakness, paresthesias. (Wilber Chou) - Related Data Home Medications Medication Instructions Recorded Confirmed Docusate [Colace] 100 mg PO DAILY 11/22/17 07/19/19 Multivit-Min/FA/Lycopen/Lutein 1 tab PO DAILY 11/22/17 07/19/19 [Centrum Silver Men Tablet] Acetaminophen with Codeine 1 tab PO DIRECTED PRN 07/19/19 07/19/19 [Tylenol w/codeine #3] Cetirizine HCl [Zyrtec] 10 mg PO DAILY 07/19/19 07/19/19 Ibuprofen [Motrin] 800 mg PO TID PRN 07/19/19 07/19/19 [place](Dose Unknown) 1 tab PO DIRECTED PRN 07/19/19 07/19/19 Tamsulosin HCl [Flomax] 0.4 mg PO HS 07/19/19 07/19/19 Previous Rx's Medication Instructions Recorded Cephalexin [Keflex] 500 mg PO Q6HR 10 Days #40 cap 07/18/19 Allergies Allergy/AdvReac Type Severity Reaction Status Date / Time iodine Allergy Swelling Verified 07/19/19 15:30 Review of Systems ROS Other: All systems not noted in ROS Statement are negative. <Wilber Chou - Last Filed: 07/18/19 13:23> ROS Other: All systems not noted in ROS Statement are negative. <Lluvia Morales - Last Filed: 07/20/19 00:55> ROS Statement: Those systems with pertinent positive or pertinent negative responses have been documented in the HPI. Past Medical History Past Medical History: COPD, GERD/Reflux, Osteoarthritis (OA) History of Any Multi-Drug Resistant Organisms: None Reported Past Surgical History: Cholecystectomy, Heart Catheterization Past Psychological History: No Psychological Hx Reported Smoking Status: Former smoker Past Alcohol Use History: Occasional Past Drug Use History: None Reported - Past Family History Mother Family Medical History: COPD, GERD/Reflux, Hypertension Additional Family Medical History / Comment(s): Glaucoma, staph infection Father Family Medical History: Coronary Artery Disease (CAD) Additional Family Medical History / Comment(s): Cancer-skin, stents placed <Wilber Chou - Last Filed: 07/18/19 13:23> General Exam Limitations: no limitations <Wilber Chou - Last Filed: 07/18/19 13:23> - General Exam Comments Initial Comments: Constitutional: NAD, AOX3, Pt has pleasant affect. HEENT: NC/AT, trachea midline, neck supple, no lymphadenopathy. Posterior pharynx non erythematous, without exudates. External ears appear normal, without discharge. Mucous membranes moist. Eyes PERRLA, EOM intact. There is no scleral icterus. No pallor noted. Cardiopulmonary: RRR, no murmurs, rubs or gallops, no JVD noted. Lungs CTAB in anterior and posterior robles. No peripheral edema. Abdominal exam: Abdomen soft and non-distended. Abdomen non-tender to palpation in all 4 quadrants. Bowel sounds active in LLQ. No hepatosplenomegaly. No ecchymosis Neuro: CN II-XII grossly intact. No nuchal rigidity. No raccon eyes, no parada sign, no hemotympanum. No cervical spinal tenderness. MSK: Partial amputation of left index finger. No osseous involvement noted. Full range of motion of digit. Capillary refill less than 2 seconds. Unable to approximate due to partial irritation, vigorously irrigated, bandaged and placed in straight Finger splint. No posterior calf tenderness bilaterally, homans sign negative bilaterally. Posterior tibialis and radial pulse +2 bilaterally. Sensation intact in upper and lower extremities. Full active ROM in upper and lower extremities, 5/5 stregnth. (Wilber Chou) Course Vital Signs 07/18/19 07/18/19 12:05 13:57 Temperature 97.5 F L 98.2 F Pulse Rate 71 80 Respiratory 18 18 Rate Blood Pressure 125/92 130/74 O2 Sat by Pulse 95 98 Oximetry Medical Decision Making <Wilber Chou - Last Filed: 07/18/19 13:23> <Lluvia Morales - Last Filed: 07/20/19 00:55> - Medical Decision Making 54-year-old male patient no pertinent past medical history presents ED with left next finger laceration. Patient reports that he was using a table saw accidentally cut off the tip of his finger. Denies any other injury. Reports her tetanus is up-to-date within last 5 years. Denies any other complaints. Pt VSS, afebrile. Physical exam displayed: Partial amputation of left index finger. No osseous involvement noted. Full range of motion of digit. Capillary refill less than 2 seconds. Unable to approximate due to partial irritation, vigorously irrigated, bandaged and placed in straight Finger splint. Plain films displayed comminuted tuft fracture second digit left hand. Sustained soft tissue defect. Patient history of Ancef. Will be discharged with Keflex. First one close outpatient orthopedic follow-up will call today. Case discussed with Dr. Morales. (Wilber Chou) I was available for consultation in the emergency department. The history and physical exam were done by the midlevel provider. I was consulted for this patients care. I reviewed the case with the midlevel provider and based on their presentation of the patient, I agree with the assessment, medical decision making and plan of care as documented. Chart was dictated using picsell dictation software. Attempts were made to correct any dictation errors however some typographical errors may persist. (Lluvia Morales) Disposition Is patient prescribed a controlled substance at d/c from ED?: No <Wilber Chou - Last Filed: 07/18/19 13:23> <Lluvia Morales - Last Filed: 07/20/19 00:55> Clinical Impression: Laceration, Finger fracture Disposition: HOME SELF-CARE Condition: Stable Instructions (If sedation given, give patient instructions): Finger Fracture (ED) Additional Instructions: Take Medications as directed. Call orthopedic consult today. Continue to wear straight finger splint, monitor for signs symptoms of infection. Return to ER if condition worsens. Please monitor for signs and symptoms of infection including: redness, warmth, drainage, discharge. Please return to ED if these signs or symptoms occur, new signs or symptoms develop or if condition worsens in anyway. Prescriptions: Cephalexin [Keflex] 500 mg PO Q6HR 10 Days #40 cap Referrals: Driss Billy MD [Primary Care Provider] - 1-2 days Scott Saldaña MD [STAFF PHYSICIAN] - 1-2 days
[2019-07-18 13:57] VITALS: BP 130/74; PULSE 80; TEMP 98.2
== END 2019-07-18 13:57 | disposition home or self-care (01) ==
LOC: EC 11:55
DX: S68.121A Partial traumatic metacarpophalangeal amputation of left index finger, initial encounter (principal); J44.9 Chronic obstructive pulmonary disease, unspecified; Z87.891 Personal history of nicotine dependence; Z79.899 Other long term (current) drug therapy; W31.2XXA Contact with powered woodworking and forming machines, initial encounter; Y93.89 Activity, other specified; Y92.69 Other specified industrial and construction area as the place of occurrence of the external cause; Y99.0 Civilian activity done for income or pay
CPT/HCPCS: 73140; 99283; 96372; J0690; J2001

== ENCOUNTER 2019-07-21 08:58 | Day surgery (SDC) | payer BC, OTHER ==
[2019-07-19 15:45] VITALS: BMI 29.2
--- NOTE | 2019-07-20 11:02 | HP ---
HISTORY AND PHYSICAL CHIEF COMPLAINT: Left index finger pain. 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 He caught the tip of it with a table saw. Initially, he was seen in the emergency room and had his wound irrigated. He notes his tetanus was up to date. He denies previous injury. PAST MEDICAL HISTORY: Significant for benign prostatic hypertrophy. PAST SURGICAL HISTORY: Negative. CURRENT MEDICATIONS: 1. Keflex. 2. Flomax. 3. Motrin. 4. Zyrtec. He denies drug allergies. FAMILY HISTORY: Significant for cancer. SOCIAL HISTORY: Significant for chewing tobacco use 16 POINT REVIEW OF SYSTEMS: Otherwise reviewed and is noncontributory. PHYSICAL EXAMINATION: On examination, the patient is approximately 5 foot 11, 210 pounds of mesomorphic habitus. HEENT: Exam is nonfocal. Neck is supple. He is nontender about the left shoulder, elbow, and wrist. On examination of his left hand, he does have a soft tissue laceration involving the ulnar dorsal tip of the index finger involving the sterile matrix of the nail bed. There is mild diastasis. He is tender over the distal tip. He fires the FDS/FDP/and EDC. He is nontender about the DIP, PIP, and MCP joint of the index finger. He has mildly limited range of motion. Capillary refill is less than 2 seconds in the distal tip. Light touch is intact in the distal tip. X-rays from [facility] 07/18/2019 of the left index finger show a comminuted tuft fracture of the distal phalanx with some bony and soft tissue defect. IMPRESSION: Left index finger nail bed laceration with open distal phalanx fracture. RECOMMENDATION: I talked to the patient and his regarding his condition and treatment options. At this point, I recommend proceeding with irrigation and debridement of the wound along with nailbed repair. We will likely perform that as an outpatient procedure utilizing local anesthetic and IV sedation. Risks and benefits were discussed at length in layman's terms. MMODL / IJN: [id number] /
[~2019-07-21 08:58] MED LIST changes: +DEXAMETHASONE SOD PHOSPHATE 10 MG/ML 1 ML VIAL IV ONE; -HYDROmorphone 1 MG/ML 1 ML SYRINGE IVP PRN; +ONDANSETRON 4 MG/2 ML VIAL IVP ONE; -Pre Op ABX Message 1 EACH MISC MISCELLANE ONE; +SCOPOLAMINE 1.5MG/72HR PATCH TRANSDERM ONE
[2019-07-21 09:40] VITALS: RESP 16; TEMP 97.4
[2019-07-21] MEDS ORDERED: fentaNYL (PF) 50 MCG/ML 2 ML AMP ONE (10:55)
[2019-07-21] MEDS ORDERED: PROPOFOL 10 MG/ML 20 ML VIAL IV ONE (10:55)
[2019-07-21] MEDS ORDERED: LIDOCAINE 1% INJ 10MG/ML (20 ML MDV) ONE (10:55)
[2019-07-21] MEDS ORDERED: MIDAZOLAM 2 MG/2 ML VIAL ONE (10:55)
[2019-07-21] MEDS ORDERED: KETAMINE 10 MG/ML 20 ML VIAL ONE (10:55)
[2019-07-21] MEDS ORDERED: BUPIVACAINE (PF) 0.25% 30 ML VIAL SQ ONE (11:13)
--- NOTE | 2019-07-21 11:33 | P.OP ---
Date of Procedure: 07/21/19 Preoperative Diagnosis: Left index finger laceration with open distal phalanx fracture and nailbed laceration Postoperative Diagnosis: Same Procedure(s) Performed: Irrigation and debridement left index finger open distal phalanx fracture with nail bed repair Anesthesia: MAC, local Surgeon: Wilber Luna Estimated Blood Loss (ml): 3 Pathology: none sent Condition: stable Disposition: PACU Indications for Procedure: The patient's a 54-year-old male who presents after injuring his left index finger on a table saw 2 days ago. Upon evaluation he was noted have a nailbed laceration and open distal phalanx fracture. He discussion of the risks and benefits of operative intervention was made with patient. He opted to proceed. Operative risks to include infection, nailbed deformity, and possible need for subsequent procedures was discussed. Informed consent was obtained. Operative Findings: As below Description of Procedure: The patient was brought to the operating room, and after induction of IV sedation, a digital block was placed utilizing 10 mL of quarter percent plain Marcaine. The left upper extremity was prepped and draped in normal fashion. A Ambrosio drain was used as a tourniquet. The distal laceration was inspected. A portion of the distal sterile matrix of the index finger nailbed was involved. A portion of the nail was removed to aid in exposure and repair. The distal phalanx was exposed. This was copiously irrigated with normal saline. The wound edges were sharply debrided with a scalpel. The sterile matrix/nailbed was repaired with simple 4-0 Vicryl sutures. I felt this was adequate repair. A sterile dressing was applied as well as an AlumaFoam splint. The patient was awoken from sedation and transferred to recovery room in good condition. Blood loss was estimated 3 mL. No complications were incurred. Sponge and needle counts were correct at the end of the case.
[2019-07-21] MEDS: HYDROmorphone 0.5 MG/0.5 ML SYRINGE IVP PRN ×2 (11:42→11:56)
[2019-07-21] MEDS ORDERED: HYDROcodone/APAP 5-325MG 1 EACH TAB PO ONE (12:05)
[2019-07-21 12:17] VITALS: BP 113/75; PULSE 67
== END 2019-07-21 12:39 | disposition home or self-care (01) ==
LOC: OR 08:58
PROVIDERS: ATTEND Orthopaedic Surgery
DX: S62.631B Displaced fracture of distal phalanx of left index finger, initial encounter for open fracture (principal); N40.0 Benign prostatic hyperplasia without lower urinary tract symptoms; J45.909 Unspecified asthma, uncomplicated; K21.9 Gastro-esophageal reflux disease without esophagitis; Z72.0 Tobacco use; Z79.899 Other long term (current) drug therapy; Z79.1 Long term (current) use of non-steroidal anti-inflammatories (NSAID); Z79.891 Long term (current) use of opiate analgesic; Z91.048 Other nonmedicinal substance allergy status; Z98.890 Other specified postprocedural states; Z90.49 Acquired absence of other specified parts of digestive tract; Z80.9 Family history of malignant neoplasm, unspecified; W31.2XXA Contact with powered woodworking and forming machines, initial encounter; Y92.69 Other specified industrial and construction area as the place of occurrence of the external cause; Y99.0 Civilian activity done for income or pay
CPT/HCPCS: 11760; J2250; J1100; J2405; J2001; J3010; J2704; J1170

== ENCOUNTER 2020-01-17 08:50 | Emergency (ER) | payer BC, OTHER ==
[2020-01-17 09:02] VITALS: RESP 18; TEMP 98
[2020-01-17] MEDS ORDERED: methylPREDNISolone SOD SUCCI 125 MG/2 ML VIAL IV STA (09:23)
[2020-01-17] MEDS ORDERED: diphenhydrAMINE 50 MG/ML 1 ML VIAL IVP STA (09:23)
[2020-01-17] MEDS ORDERED: FAMOTIDINE 20 MG/2 ML VIAL IV STA (09:23)
[2020-01-17 09:53] LABS: Basophils # (A) 0.1 k/uL (0-0.2); Basophils % (A) 1 %; Eosinophils # (A) 0.1 k/uL (0-0.7); Eosinophils % (A) 2 %; HCT 46.6 % (39.0-53.0); HGB 14.4 gm/dL (13.0-17.5); Lymphocytes # (A) 1.6 k/uL (1.0-4.8); Lymphocytes % (A) 25 %; MCH 27.8 pg (25.0-35.0); MCV 89.7 fL (80.0-100.0); Mean Platelet Volume 7.1; Monocytes # (A) 0.4 k/uL (0-1.0); Monocytes % (A) 6 %; Neutrophils % (A) 62 %; Platelet Count 470 k/uL (150-450); RBC 5.19 m/uL (4.30-5.90); RDW 13.9 % (11.5-15.5); WBC 6.5 k/uL (3.8-10.6)
[2020-01-17 10:02] LABS: ALT 48 U/L (4-49); AST 45 U/L (17-59); African American GFR (CKD) >90 (>60 ml/min/1.73 sqM); Albumin 4.6 g/dL (3.5-5.0); Alkaline Phosphatase 88 U/L (38-126); Anion Gap 9 mmol/L; Blood Urea Nitrogen 16 mg/dL (9-20); Calcium 9.7 mg/dL (8.4-10.2); Carbon Dioxide 24 mmol/L (22-30); Chloride 105 mmol/L (98-107); Glucose 101 mg/dL (74-99); Non-African American GFR(CKD) >90 (>60 ml/min/1.73 sqM); Potassium 4.7 mmol/L (3.5-5.1); Sodium 138 mmol/L (137-145); Total Bilirubin 0.7 mg/dL (0.2-1.3); Total Protein 7.5 g/dL (6.3-8.2)
--- NOTE | 2020-01-17 10:39 | ED ---
Abdominal Pain HPI - General Chief Complaint: Abdominal Pain Stated Complaint: Bowel obstruction Time Seen by Provider: 01/17/20 09:00 Source: patient Mode of arrival: ambulatory Limitations: no limitations - History of Present Illness Initial Comments: The patient is a 54-year-old male with past medical history of GERD and asthma who presents to the emergency department with reported abdominal pain and diarrhea. Patient states her the past month and a half he has had increasing pain at the site of his left abdominal wall hernia. Reports to increasing frequency to which the hernia buldges. Patient reports he has gone back to work and there may be an association with this. Reports that the hernia is reducible. Also reports to diarrhea. States that an hour and half after he eats he will have loose watery stool without fail. Has been changing his diet without improvement. He denies taking any medications for his symptoms. No nausea or vomiting. Denies fevers or chills. No recent antibiotic use. Had a colonoscopy 3 years ago and was treated for H. pylori. Denies hematuria, dysuria or difficulty voiding. No melanic stools or hematochezia. There are no other alleviating, precipitating or modifying factors - Related Data Home Medications Medication Instructions Recorded Confirmed Multivit-Min/FA/Lycopen/Lutein 1 tab PO DAILY 11/22/17 01/17/20 [Centrum Silver Men Tablet] Cetirizine HCl [Zyrtec] 10 mg PO DAILY 07/19/19 01/17/20 Tamsulosin HCl [Flomax] 0.8 mg PO HS 07/19/19 01/17/20 Esomeprazole Magnesium [NexIUM] 20 mg PO DAILY 01/17/20 01/17/20 Allergies Allergy/AdvReac Type Severity Reaction Status Date / Time iodine Allergy Swelling Verified 01/17/20 10:12 shellfish derived [Shellfish] Allergy Swelling Verified 01/17/20 10:12 Review of Systems ROS Statement: Those systems with pertinent positive or pertinent negative responses have been documented in the HPI. ROS Other: All systems not noted in ROS Statement are negative. 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, History of Any Multi-Drug Resistant Organisms: None Reported Past Surgical History: Cholecystectomy, Heart Catheterization Additional Past Surgical History / Comment(s): foreign body removal rt hand, Past Anesthesia/Blood Transfusion Reactions: Family History of Problems w/ Anesthesia Additional Past Anesthesia/Blood Transfusion Reaction / Comment(s): son had problem coming out after hand surgery-"too much anesthesia' Past Psychological History: No Psychological Hx Reported Smoking Status: Former smoker Past Alcohol Use History: Occasional Past Drug Use History: None Reported - Past Family History Father Family Medical History: Cancer Additional Family Medical History / Comment(s): Cancer-skin Sister(s) Family Medical History: Cancer Additional Family Medical History / Comment(s): breast ,thyroid General Exam Limitations: no limitations General appearance: alert, in no apparent distress Head exam: Present: atraumatic, normocephalic, normal inspection Eye exam: Present: normal appearance, PERRL, EOMI. Absent: scleral icterus, conjunctival injection, periorbital swelling ENT exam: Present: normal exam, mucous membranes moist Neck exam: Present: normal inspection. Absent: tenderness, meningismus, l ymphadenopathy Respiratory exam: Present: normal lung sounds bilaterally. Absent: respiratory distress, wheezes, rales, rhonchi, stridor Cardiovascular Exam: Present: regular rate, normal rhythm, normal heart sounds. Absent: systolic murmur, diastolic murmur, rubs, gallop, clicks GI/Abdominal exam: Present: soft, normal bowel sounds, hernia (left inguinal, reducibe). Absent: distended, tenderness, guarding, rebound, rigid Extremities exam: Present: normal inspection, full ROM, normal capillary refill. Absent: tenderness, pedal edema, joint swelling, calf tenderness Back exam: Present: normal inspection Neurological exam: Present: alert, oriented X3, CN II-XII intact Psychiatric exam: Present: normal affect, normal mood Skin exam: Present: warm, dry, intact, normal color. Absent: rash Course Vital Signs 01/17/20 01/17/20 08:58 11:31 Temperature 98.0 F 98.0 F Pulse Rate 66 68 Respiratory 18 18 Rate Blood Pressure 129/86 109/72 O2 Sat by Pulse 98 97 Oximetry Medical Decision Making - Medical Decision Making Upon arrival the patient is placed into room 5. A thorough history and physical exam is performed. Abdominal exam reveals a reducible hernia. Laboratory studies were conducted which demonstrates a platelet count of 470. Glucose is 101. Lactic acid normal at 1. The patient was sent into the emergency room by his physician at the [facility] for a CT of his and and pelvis to rule out bowel obstruction. As this is the patient's main complaint he was sent over for CT. He was pretreated with Pepcid, Solu-Medrol and Benadryl prior to study. CT demonstrates mildly thickened loops of small bowel involving the jejunum may reflect nonspecific enteritis. The patient is reevaluated and remains comfortable in bed. I discussed diagnosis, differential and treatment options. I did recommend surgical follow-up for the patient inguinal hernia. I also recommended cholestyramine for the patient's diarrhea however the patient refused any prescriptions. Patient is to follow up with his GI doctor in regards to chronic diarrhea. Return to the emergency room for any new or worsening symptoms. Patient was in agreement treatment plan he is discharged home in stable condition - Lab Data Result diagrams: 01/17/20 09:39 01/17/20 09:39 Lab Results 01/17/20 01/17/20 01/17/20 Range/Units 09:39 09:39 09:39 WBC 6.5 (3.8-10.6) k/uL RBC 5.19 (4.30-5.90) m/uL Hgb 14.4 (13.0-17.5) gm/dL Hct 46.6 (39.0-53.0) % MCV 89.7 (80.0-100.0) fL MCH 27.8 (25.0-35.0) pg MCHC 31.0 (31.0-37.0) g/dL RDW 13.9 (11.5-15.5) % Plt Count 470 H (150-450) k/uL Neutrophils % 62 % Lymphocytes % 25 % Monocytes % 6 % Eosinophils % 2 % Basophils % 1 % Neutrophils # 4.0 (1.3-7.7) k/uL Lymphocytes # 1.6 (1.0-4.8) k/uL Monocytes # 0.4 (0-1.0) k/uL Eosinophils # 0.1 (0-0.7) k/uL Basophils # 0.1 (0-0.2) k/uL Sodium 138 (137-145) mmol/L Potassium 4.7 (3.5-5.1) mmol/L Chloride 105 (98-107) mmol/L Carbon Dioxide 24 (22-30) mmol/L Anion Gap 9 mmol/L BUN 16 (9-20) mg/dL Creatinine 0.82 (0.66-1.25) mg/dL Est GFR (CKD-EPI)AfAm >90 (>60 ml/min/1.73 sqM) Est GFR (CKD-EPI)NonAf >90 (>60 ml/min/1.73 sqM) Glucose 101 H (74-99) mg/dL Plasma Lactic Acid Antoine 1.0 (0.7-2.0) mmol/L Calcium 9.7 (8.4-10.2) mg/dL Total Bilirubin 0.7 (0.2-1.3) mg/dL AST 45 (17-59) U/L ALT 48 (4-49) U/L Alkaline Phosphatase 88 (38-126) U/L Total Protein 7.5 (6.3-8.2) g/dL Albumin 4.6 (3.5-5.0) g/dL Lipase 88 (23-300) U/L Disposition Clinical Impression: Abdominal pain, Inguinal hernia, Diarrhea Disposition: HOME SELF-CARE Condition: Stable Instructions (If sedation given, give patient instructions): Inguinal Hernia (ED) Additional Instructions: Please follow-up with the surgeon in regards to further treatment options. Also follow-up with your GI doctor in regards to your chronic diarrhea. Return to the emergency room for any new or worsening symptoms Is patient prescribed a controlled substance at d/c from ED?: No Referrals: Nonstaff,Physician [Primary Care Provider] - 1-2 days Hermilo Salazar MD [STAFF PHYSICIAN] - 1-2 days Time of Disposition: 11:11
--- NOTE | 2020-01-17 10:57 | CT ---
EXAMINATION TYPE: CT abdomen pelvis w con DATE OF EXAM: 01/17/2020 COMPARISON: None HISTORY: Abdominal pain CT DLP: 1268.7 mGycm CONTRAST: CT scan of the abdomen and pelvis is performed without Oral Contrast and with IV Contrast, patient in jected with 100 mL of Isovue 300. FINDINGS: LUNG BASES-: No visible nodule. No infiltrate. LIVER/GB: Cholecystectomy clips are in place. No space occupying hepatic lesion. Biliary tree is o f normal caliber. PANCREAS: No inflammation. No distinct mass. SPLEEN: No splenic enlargement. No lesion seen. ADRENALS: No nodule. No thickening. KIDNEYS/BLADDER: No hydronephrosis. No nephrolithiasis. No distinct renal mass. Urinary bladder g rossly unremarkable. BOWEL: Normal appendix. Normal bowel caliber. Mildly thickened loops of small bowel involving the je junum may reflect nonspecific enteritis. GENITAL ORGANS: No gross abnormality. LYMPH NODES: No greater than 1cm abdominal or pelvic lymph nodes are appreciated. AORTA: No significant abnormality. OSSEOUS STRUCTURES: No significant abnormality is seen. OTHER: Fat-containing left inguinal hernia. IMPRESSION: 1. Mildly thickened loops of small bowel involving the jejunum may reflect nonspecific enteritis.
[2020-01-17 11:32] VITALS: BP 109/72; PULSE 68
== END 2020-01-17 11:31 | disposition home or self-care (01) ==
LOC: EC 08:50
DX: K40.90 Unilateral inguinal hernia, without obstruction or gangrene, not specified as recurrent (principal); K21.9 Gastro-esophageal reflux disease without esophagitis; Z79.899 Other long term (current) drug therapy; Z91.013 Allergy to seafood; Z91.048 Other nonmedicinal substance allergy status; Z87.891 Personal history of nicotine dependence; Z90.49 Acquired absence of other specified parts of digestive tract
CPT/HCPCS: 36415; 80053; 83605; 83690; 85025; 74177; 99284; 96374; 96375 ×2; J1200; J2930; Q9967

== ENCOUNTER → 2020-02-06 | Outpatient (CLI) | payer OTHER | END | disposition home or self-care (01) | LOC: LABWHC1 11:03 | PROVIDERS: ATTEND Surgery Plastic and Reconstructive Surgery | DX: K40.90 Unilateral inguinal hernia, without obstruction or gangrene, not specified as recurrent (principal) | CPT/HCPCS: 93005; 36415; U0003 ==

== ENCOUNTER → 2020-02-09 | Day surgery (SDC) | payer OTHER ==
[2020-02-07 14:54] VITALS: BMI 30.4
[~2020-02-09] MED LIST changes: +ACETAMINOPHEN TAB 500 MG TAB PO STA; +GABAPENTIN 300 MG CAP PO STA; +GLYCOPYRROLATE 0.2 MG/ML 2 ML VIAL ONE; +HEPARIN SODIUM,PORCINE 5,000 UNIT/ML 1 ML VIAL SQ ONE; +HYDROmorphone 0.5 MG/0.5 ML SYRINGE IVP PRN; +IBUPROFEN 200 MG TAB PO ONE; +KETOROLAC 30 MG/ML 1 ML VIAL IVP PRN; +LACTATED RINGERS 1,000 ML IV ONE; +LIDOCAINE 1% (10MG/ML) FOR IV START INTRADERMA ONE; -LIDOCAINE 1% 20 ML VIAL (10MG/ML) FOR IV START INTRADERMA PRN; +LIDOCAINE 1% INJ 10MG/ML (20 ML MDV) ONE; +LIDOCAINE 1%-EPI 1:100,000 20 ML VIAL SQ ONE; +MIDAZOLAM 2 MG/2 ML VIAL IV ONE; +NEOSTIGMINE 1 MG/ML 10 ML VIAL ONE; +PROPOFOL 10 MG/ML 20 ML VIAL IV ONE; +ROCURONIUM BROMIDE 10 MG/ML 5 ML VIAL IV ONE; +ROPIVACAINE 5 MG/ML 30 ML VIAL ONE; +SUCCINYLCHOLINE CHLORIDE 100 MG/5 ML SYR IV ONE; +TAMSULOSIN 0.4 MG CAP.ER.24H PO STA; +diphenhydrAMINE 50 MG/ML 1 ML VIAL ONE; +fentaNYL (PF) 50 MCG/ML 2 ML AMP ONE
--- NOTE | 2020-02-09 06:25 | P.GSHP ---
History of Present Illness H&P Date: 02/09/20 CHIEF COMPLAINT: History of left groin swelling. HISTORY OF PRESENT ILLNESS: Megan Magallon is a 48-year-old female who comes in with history of two new complaints. One of them includes a swelling along the epigastrium from a previous ventral hernia as a child and now a new swelling along the left groin. She has a personal history of a previous left inguinal hernia repair with removal of a tumor in August of 2018, now a year and a half ago. As a result of the new swelling, she presents here for assessment. PAST MEDICAL HISTORY: Please see list. PAST SURGICAL HISTORY: Please see list. MEDICATIONS: Please see list. ALLERGIES: Please see list. SOCIAL HISTORY: No illicit drug use FAMILY HISTORY: No reports of Crohn disease or ulcerative colitis. REVIEW OF ORGAN SYSTEMS: Additionally reports: CONSTITUTIONAL: No fevers or chills. No recent weight loss. EYES: Denies any trouble with vision. No glasses. HEENT: No difficulties with hearing. No nosebleeds. No difficulty swallowing. RESPIRATORY: Denies pneumonia. Denies any troubles with breathing or dyspnea on exertion. CARDIOVASCULAR: Denies any chest pain, palpitations, or recent heart attacks. GASTROINTESTINAL: Denies fatty food intolerance. Denies change in bowel habits and gas bloat. GENITOURINARY: Denies any blood in urine or increased urinary frequency. NEUROLOGICAL: Denies any numbness or tingling along the distal extremities. No seizure disorders. Has headaches. MUSCULOSKELETAL: Denies any back pain, stiffness or joint arthritis. SKIN: No current skin cancer. No rash. PSYCHIATRIC: Denies current depression or suicidal thoughts. ENDOCRINE: Denies current thyroid disorders. Denies any blood sugar glucose intolerance. HEME/LYMPHATIC: Denies any lumps and bumps around the neck. No recent deep venous thrombosis. ALLERGY/IMMUNOLOGY: No immunoglobulin therapy. No immune deficiencies. BREAST: Denies current breast lumps, pain or nipple discharge. PHYSICAL EXAM: Patient is a 48-year-old female. Abdomen: Palpable incisional hernia defect of about 2 cm along the epigastrium, just above the umbilicus. Swelling was noted along the left groin. CONSTITUTIONAL: Well developed and in no acute distress. Vitals reviewed. EYES: Conjuctivae without sclera icterus. Pupils are equally round and reactive to light. Extraocular movements grossly intact. HEAD, EARS, NOSE, THROAT: Moist buccal mucosa. Head is atraumatic, normocephalic. Hears conversational speech. No nasal drainage. NECK: Supple. No JV distention. No thyroidomegaly. RESPIRATORY: Non-labored respirations and equal bilateral excursions. No gross wheezes. CARDIOVASCULAR: Regular rate and rhythm. Extremities without moderate edema. Palpable 2+ radial pulses. LYMPH: No neck lymphadenopathy. No axillary lymphadenopathy. MUSCULOSKELETAL: Nail and fingers with good capillary refill. SKIN: Warm and well perfused with good skin turgor. NEUROLOGIC: Cranial nerves I through XII grossly intact. Sensation upper and extremities intact. No focal or lateralizing signs. PSYCH: Appropriate affect. Alert and oriented to person, place and time. Displays appropriate insight. ASSESSMENT: 1. Recurrent incisional ventral hernia of the epigastrium. 2. Recurrent left inguinal swelling. PLAN: 1. We have gone over her prior images that demonstrated a large tumor, which had been removed from the left groin. Separately, this may also be retained fluid. 2. She does have a recurrent defect along the abdomen, where an incisional hernia repair was described. 3. Benefits and risks of the procedure were described. 4. Will need CMP and CBC for pre-op. 5. Will need 12-lead EKG, pre-op Past Medical History Past Medical History: Asthma, GERD/Reflux, Hearing Disorder / Deafness, Osteoarthritis (OA), Prostate Disorder, Skin Disorder Additional Past Medical History / Comment(s): hx electrical heart problems treated (Over 15 yrs ago)-no current problems, hx of allergy induced asthma, bronchitis with bronchial trachial malasia. (if he coughs hard he has passed out)., hiatal hernia, hx of crushing injury right foot with nerve damage-foot is numb., psoriasis, BPH ., [place]-hearing aids., left inguinal hernia. History of Any Multi-Drug Resistant Organisms: None Reported Past Surgical History: Cholecystectomy, Heart Catheterization Additional Past Surgical History / Comment(s): foreign body removal rt hand, surgery left finger (saw injury) Past Anesthesia/Blood Transfusion Reactions: Family History of Problems w/ Anesthesia Additional Past Anesthesia/Blood Transfusion Reaction / Comment(s): son had problem coming out after hand surgery-"too much anesthesia' Past Psychological History: No Psychological Hx Reported Smoking Status: Former smoker Past Alcohol Use History: Occasional Additional Past Alcohol Use History / Comment(s): quit smoking 17 yrs ago (2002 ), smoked for 8 yrs, currently chews tobacco Past Drug Use History: None Reported - Past Family History Father Family Medical History: Cancer Additional Family Medical History / Comment(s): Cancer-skin Sister(s) Family Medical History: Cancer Additional Family Medical History / Comment(s): breast ,thyroid Medications and Allergies Home Medications Medication Instructions Recorded Confirmed Type Multivit-Min/FA/Lycopen/Lutein 1 tab PO DAILY 11/22/17 02/07/20 History [Centrum Silver Men Tablet] Cetirizine HCl [Zyrtec] 10 mg PO DAILY 07/19/19 02/07/20 History Tamsulosin HCl [Flomax] 0.8 mg PO HS 07/19/19 02/07/20 History Esomeprazole Magnesium [NexIUM] 20 mg PO DAILY 01/17/20 02/07/20 History Ibuprofen [Motrin] 800 mg PO DIRECTED PRN 02/07/20 02/07/20 History Allergies Allergy/AdvReac Type Severity Reaction Status Date / Time iodine Allergy Swelling Verified 02/07/20 14:16 shellfish derived [Shellfish] Allergy Swelling Verified 02/07/20 14:16
--- NOTE | 2020-02-09 06:33 | P.GSHP ---
History of Present Illness H&P Date: 02/09/20 CHIEF COMPLAINT: Inguinal hernia, right. HISTORY OF PRESENT ILLNESS: The patient is a 54-year-old male who presents with a history of swelling and pain along the left groin. He's noted increased swelling including pain of the area. Now he presents for repair of his inguinal hernia. PAST MEDICAL HISTORY: Please see list. PAST SURGICAL HISTORY: Please see list. MEDICATIONS: Please see list. ALLERGIES: Please see list. SOCIAL HISTORY: No illicit drug use FAMILY HISTORY: No reports of Crohn disease or ulcerative colitis. REVIEW OF ORGAN SYSTEMS: CONSTITUTIONAL: No reports of fevers or chills. No reports of weight loss despite prior attempts. GI: Denies any blood in stools or constipation. PHYSICAL EXAM: VITAL SIGNS: Stable GENERAL: Well-developed pleasant male in no acute distress. HEENT: No scleral icterus. Extraocular movements grossly intact. Moist buccal mucosa. NECK: Supple without lymphadenopathy. CHEST: Unlabored respirations. Equal bilateral excursions. CARDIOVASCULAR: Regular rate and rhythm. Distal 2+ pulses. ABDOMEN: Soft, nondistended. No peritoneal signs. Palpable defect of the left groin. MUSCULOSKELETAL: No clubbing, cyanosis, or edema. ASSESSMENT: 1. Inguinal hernia, left PLAN: 1. Recommend proceeding with a robotic inguinal repair with mesh with possible bilateral approach. 2. Benefits and risks of surgical intervention was discussed including possibility of open technique. 3. DVT prophylaxis. Past Medical History Past Medical History: Asthma, GERD/Reflux, Hearing Disorder / Deafness, Osteoarthritis (OA), Prostate Disorder, Skin Disorder Additional Past Medical History / Comment(s): hx electrical heart problems treated (Over 15 yrs ago)-no current problems, hx of allergy induced asthma, bronchitis with bronchial trachial malasia. (if he coughs hard he has passed out)., hiatal hernia, hx of crushing injury right foot with nerve damage-foot is numb., psoriasis, BPH ., [place]-hearing aids., left inguinal hernia. History of Any Multi-Drug Resistant Organisms: None Reported Past Surgical History: Cholecystectomy, Heart Catheterization Additional Past Surgical History / Comment(s): foreign body removal rt hand, surgery left finger (saw injury) Past Anesthesia/Blood Transfusion Reactions: Family History of Problems w/ Anesthesia Additional Past Anesthesia/Blood Transfusion Reaction / Comment(s): son had problem coming out after hand surgery-"too much anesthesia' Past Psychological History: No Psychological Hx Reported Smoking Status: Former smoker Past Alcohol Use History: Occasional Additional Past Alcohol Use History / Comment(s): quit smoking 17 yrs ago (2002), smoked for 8 yrs, currently chews tobacco Past Drug Use History: None Reported - Past Family History Father Family Medical History: Cancer Additional Family Medical History / Comment(s): Cancer-skin Sister(s) Family Medical History: Cancer Additional Family Medical History / Comment(s): breast ,thyroid Medications and Allergies Home Medications Medication Instructions Recorded Confirmed Type Multivit-Min/FA/Lycopen/Lutein 1 tab PO DAILY 11/22/17 02/07/20 History [Centrum Silver Men Tablet] Cetirizine HCl [Zyrtec] 10 mg PO DAILY 07/19/19 02/07/20 History Tamsulosin HCl [Flomax] 0.8 mg PO HS 07/19/19 02/07/20 History Esomeprazole Magnesium [NexIUM] 20 mg PO DAILY 01/17/20 02/07/20 History Ibuprofen [Motrin] 800 mg PO DIRECTED PRN 02/07/20 02/07/20 History Allergies Allergy/AdvReac Type Severity Reaction Status Date / Time iodine Allergy Swelling Verified 02/07/20 14:16 shellfish derived [Shellfish] Allergy Swelling Verified 02/07/20 14:16
[2020-02-09 09:40] VITALS: RESP 18
--- NOTE | 2020-02-09 12:28 | P.ANPRN ---
Procedure Note - Anesthesia - Nerve Block Performed Bilateral Transversus Abdominis Single Date of Procedure: 02/09/20 Procedure Start Time: 10:25 Procedure Stop Time: 10:38 Location of Patient: PreOp Indication: Acute Post-Operative Pain, Requested by Surgeon (Dr Larsen) Sedation Type: Sedate with meaningful contact maintained Preparation: Sterile Prep Position: Supine Catheter: None Needle Types: Pajunk Needle Gauge: 20 Ultrasound used to visualize needle placement: Yes Ultrasound used to observe medication spread: Yes Injectate: 0.5% Ropivacaine (see comment for volume) (20cc each side) Blood Aspirated: No Pain Paresthesia on Injection Noted: No Resistance on Injection: Normal Image Stored and Saved: Yes Events: Uneventful and Well Tolerated
[2020-02-09 15:06] VITALS: TEMP 97.8
--- NOTE | 2020-02-09 15:18 | P.OP ---
Date of Procedure: 02/09/20 Description of Procedure: SURGEON: REYNA LARSEN MD PREOPERATIVE DIAGNOSES: 1. Initial left inguinal hernia 2. Asthma 3. Gastroesophageal reflux disease 4. Obstructive uropathy 5. Prostate disorder 6. Hearing impaired POSTOPERATIVE DIAGNOSES: 1. Initial left inguinal hernia, indirect 3 cm, reducible 2. Asthma 3. Gastroesophageal reflux disease 4. Obstructive uropathy 5. Prostate disorder 6. Hearing impaired 7. Left inguinal lipoma 8. Peritoneal adhesions OPERATION: 1. Robotic assisted da Narayan Xi laparoscopic lysis of adhesions over 30 minutes greater omentum to abdominal wall 2. Robotic assisted da Narayan Xi laparoscopic reduction and repair of initial left inguinal hernia repair with ventralight ST mesh, 11.4 cm. 3. Excision of incarcerated left inguinal lipoma 6 x 3 cm Anesthesia: GETA, regional, local Estimated Blood Loss (ml): 10 Pathology: other (Left inguinal sac and lipoma) Condition: stable Disposition: PACU COMPLICATIONS: None. Operative Findings: 1. Large left inguinal indirect hernia, 3 cm, Nyhus type II 2. Intra-abdominal adhesions, greater omentum to the abdominal wall INDICATIONS: The patient is a 54-year-old gentleman who presents with history of left inguinal hernia. Now presents for definitive surgical intervention. Laparoscopic versus open and robotic approaches were discussed. Benefits and risks including bleeding, infection, injury to the vas deferens as well as sterility and chronic groin pain were reviewed. Placement of mesh was also described. Informed consent was obtained. DESCRIPTION: In the preoperative area, the patient was marked with indelible marker along the left groin. The patient was brought to the operating room and laid in supine position. After general induction, the abdomen had been prepped and draped in standard sterile fashion. Ioban draping was also placed. Prior to incision, a timeout protocol was confirmed with surgical team regarding patient's name including procedures to be performed and location along the left groin. Initial positioning for the robotic assisted ports were selected whereby 20 cm superior to the target anatomy, 0 degree 5 mm laparoscopic trocar entry was performed at the left upper quadrant. The abdomen was insufflated to 15 mmHg which he had tolerated well. Diagnostic laparoscopy demonstrated moderate omental adhesions. The right groin was unremarkable. Next, along the epigastrium, 8 mm robot trocar was placed. An 8-mm robotic trocar was placed under direct visualization at the right upper quadrant. The 5 mm port was exchanged for a 8 mm trocar. All trocars were positioned between 8 to 10-cm apart from each other. The patient was placed in steep reverse Trendelenburg position, 16. The CORP80 XI robot was primed, draped, prepared for docking along the upper abdomen of the patient. I then went to the CORP80 Xi console. The assistant dean was at bedside for exchange of the robot arms and equipment. At the left groin, over 3 cm indirect inguinal hernia was identified. The hernia sac was evaginated whereby the peritoneum was scored using Endo scissors with cautery. A large incarcerated inguinal lipoma had reached to the scrotum and was transected using Vessel sealer. Once completely reduced into the abdominal cavity, the peritoneal sac of the hernia was identified. The sac was resected and then passed off for further pathological analysis. The size of the hernia defect was 3 cm with intraoperative films obtained. Using nonabsorbable 2-0 VLOC, the peritoneal defect of the left inguinal hernia site was closed using a pursestring suture. The defect was found to be completely closed with complete reduction of the left inguinal hernia was confirmed. As an onlay, an 11.[address] mesh by [employer] was cut in half and entered into the abdominal cavity via the 8 mm trocar. The mesh was tacked to the pelvis using 2-0 VLOC x 9-inch length sutures. The robot was undocked from the patient's bedside. I then rescrubbed into the case. Insufflation was released from the abdominal cavity and all instruments were removed from the abdominal cavity. Additional palm pressure was applied along the left groin as well as releasing any air along the scrotum and left groin. The rest of incisions were reapproximated using 4-0 Monocryl in a running subcuticular fashion. Local anesthetic was placed along the incision including for a groin block. Incisions were cleansed using dilute hydrogen peroxide. Liquid glue was applied to the skin. At the end of the procedure, the needle, sponge and instrument counts had been verified correct by the surgical device sales representative. The patient had tolerated the procedure well and was taken to the postanesthesia care unit in stable condition. Intraoperative findings were described to the patient's family who were pleased with the level of care. Plan - Discharge Summary Discharge Rx Participant: Yes New Discharge Prescriptions: New Acetaminophen Tab [Tylenol Tab] 1,000 mg PO Q6HR PRN #30 tablet PRN Reason: Pain Ibuprofen [Motrin] 600 mg PO Q8HR PRN #30 tab PRN Reason: Pain Continue Multivit-Min/FA/Lycopen/Lutein [Centrum Silver Men Tablet] 1 tab PO DAILY Cetirizine HCl [Zyrtec] 10 mg PO DAILY Tamsulosin HCl [Flomax] 0.8 mg PO HS Esomeprazole Magnesium [NexIUM] 20 mg PO DAILY Ibuprofen [Motrin] 800 mg PO DIRECTED PRN PRN Reason: Pain Discharge Medication List Multivit-Min/FA/Lycopen/Lutein [Centrum Silver Men Tablet] 1 tab PO DAILY 11/22/17 [History] Cetirizine HCl [Zyrtec] 10 mg PO DAILY 07/19/19 [History] Tamsulosin HCl [Flomax] 0.8 mg PO HS 07/19/19 [History] Esomeprazole Magnesium [NexIUM] 20 mg PO DAILY 01/17/20 [History] Ibuprofen [Motrin] 800 mg PO DIRECTED PRN 02/07/20 [History] Acetaminophen Tab [Tylenol Tab] 1,000 mg PO Q6HR PRN #30 tablet 02/09/20 [Rx] Ibuprofen [Motrin] 600 mg PO Q8HR PRN #30 tab 02/09/20 [Rx] Follow up Appointment(s)/Referral(s): Reyna Larsen MD [STAFF PHYSICIAN] - 02/13/20 Patient Instructions/Handouts: *Surgery [facility] - Scopalamine Patch Instructions, Laparoscopic Herniorrhaphy (IP), Inguinal Hernia Repair (DC) Activity/Diet/Wound Care/Special Instructions: No lifting over 4 pounds in 4 weeks until February 22. January shower. No bath tub soaks for two weeks until February 22. Diet as tolerated. No driving while on narcotics. Use Tylenol and ibuprofen scheduled for the next 24-48 hours for best pain relief. Use ice along incisions for the today to prevent swelling. Discharge Disposition: HOME SELF-CARE
[2020-02-09 16:35] VITALS: BP 131/87; PULSE 90
== END | disposition home or self-care (01) ==
LOC: OR 08:44
PROVIDERS: ATTEND Surgery Plastic and Reconstructive Surgery
DX: K40.90 Unilateral inguinal hernia, without obstruction or gangrene, not specified as recurrent (principal); D17.5 Benign lipomatous neoplasm of intra-abdominal organs; K66.0 Peritoneal adhesions (postprocedural) (postinfection); K21.9 Gastro-esophageal reflux disease without esophagitis; J45.998 Other asthma; N13.8 Other obstructive and reflux uropathy; N40.1 Benign prostatic hyperplasia with lower urinary tract symptoms; H91.90 Unspecified hearing loss, unspecified ear; M19.90 Unspecified osteoarthritis, unspecified site; L40.9 Psoriasis, unspecified; K44.9 Diaphragmatic hernia without obstruction or gangrene; R20.0 Anesthesia of skin; F17.220 Nicotine dependence, chewing tobacco, uncomplicated; Z86.79 Personal history of other diseases of the circulatory system; Z87.09 Personal history of other diseases of the respiratory system; Z87.828 Personal history of other (healed) physical injury and trauma; Z97.4 Presence of external hearing-aid; Z90.49 Acquired absence of other specified parts of digestive tract; Z98.890 Other specified postprocedural states; Z79.899 Other long term (current) drug therapy; Z79.1 Long term (current) use of non-steroidal anti-inflammatories (NSAID); Z91.048 Other nonmedicinal substance allergy status; Z91.013 Allergy to seafood; Z91.89 Other specified personal risk factors, not elsewhere classified; Z84.89 Family history of other specified conditions; Z80.8 Family history of malignant neoplasm of other organs or systems; Z80.3 Family history of malignant neoplasm of breast
CPT/HCPCS: 22903; 49329; 49650; S2900; 64488; 88305

== ENCOUNTER 2022-03-23 12:50 | Day surgery (SDC) | payer OTHER ==
[2022-03-20 11:21] VITALS: BMI 29.2
[~2022-03-23 12:50] MED LIST changes: -ACETAMINOPHEN TAB 500 MG TAB PO STA; -DEXAMETHASONE SOD PHOSPHATE 10 MG/ML 1 ML VIAL IV ONE; -GABAPENTIN 300 MG CAP PO STA; -GLYCOPYRROLATE 0.2 MG/ML 2 ML VIAL ONE; -HEPARIN SODIUM,PORCINE 5,000 UNIT/ML 1 ML VIAL SQ ONE; -HYDROmorphone 0.5 MG/0.5 ML SYRINGE IVP PRN; -IBUPROFEN 200 MG TAB PO ONE; -KETOROLAC 30 MG/ML 1 ML VIAL IVP PRN; -LACTATED RINGERS 1,000 ML IV ONE; -LIDOCAINE 1% (10MG/ML) FOR IV START INTRADERMA ONE; +LIDOCAINE 1% (10MG/ML) FOR IV START INTRADERMA PRN; -LIDOCAINE 1% INJ 10MG/ML (20 ML MDV) ONE; -LIDOCAINE 1%-EPI 1:100,000 20 ML VIAL SQ ONE; -MIDAZOLAM 2 MG/2 ML VIAL IV ONE; -MIDAZOLAM 2 MG/2 ML VIAL IV PRN; -NEOSTIGMINE 1 MG/ML 10 ML VIAL ONE; -ONDANSETRON 4 MG/2 ML VIAL IVP ONE; -PROPOFOL 10 MG/ML 20 ML VIAL IV ONE; -ROCURONIUM BROMIDE 10 MG/ML 5 ML VIAL IV ONE; -ROPIVACAINE 5 MG/ML 30 ML VIAL ONE; -SCOPOLAMINE 1.5MG/72HR PATCH TRANSDERM ONE; -SUCCINYLCHOLINE CHLORIDE 100 MG/5 ML SYR IV ONE; -TAMSULOSIN 0.4 MG CAP.ER.24H PO STA; -diphenhydrAMINE 50 MG/ML 1 ML VIAL ONE; -fentaNYL (PF) 50 MCG/ML 2 ML AMP ONE
[2022-03-23 13:26] VITALS: TEMP 97.6
[2022-03-23] MEDS ORDERED: PROPOFOL 10 MG/ML 20 ML VIAL IV ONE (14:16)
[2022-03-23] MEDS ORDERED: GLYCOPYRROLATE 0.2 MG/ML 2 ML VIAL ONE (14:16)
[2022-03-23 14:55] VITALS: BP 111/74; PULSE 69; RESP 17
--- NOTE | 2022-03-23 15:12 | P.GSHP ---
History of Present Illness H&P Date: 03/23/22 Chief Complaint: GI bleed Is a 56-year-old male been safe colonoscopy. He's had issues rectal bleeding. Patient's presumed to have hemorrhoids. He states he also history of diverticulosis. Past Medical History Past Medical History: Asthma, GERD/Reflux, Hearing Disorder / Deafness, Osteoarthritis (OA), Prostate Disorder, Skin Disorder Additional Past Medical History / Comment(s): hx electrical heart problems treated (Over 15 yrs ago)-no current problems, hx of allergy induced asthma, bronchitis with bronchial trachial malasia. (if he coughs hard he has passed out)., hiatal hernia, hx of crushing injury right foot with nerve damage-foot is numb., psoriasis, BPH ., [place]-hearing aids., left inguinal hernia. History of Any Multi-Drug Resistant Organisms: None Reported Past Surgical History: Cholecystectomy, Heart Catheterization, Hernia Repair Additional Past Surgical History / Comment(s): foreign body removal rt hand, kobe gretel left finger (saw injury) Past Anesthesia/Blood Transfusion Reactions: No Reported Reaction, Family History of Problems w/ Anesthesia Additional Past Anesthesia/Blood Transfusion Reaction / Comment(s): son had problem coming out after hand surgery-"too much anesthesia' Smoking Status: Former smoker - Past Family History Mother Family Medical History: COPD, GERD/Reflux, Hypertension Additional Family Medical History / Comment(s): Glaucoma, staph infection Father Family Medical History: Cancer Additional Family Medical History / Comment(s): Cancer-skin Sister(s) Family Medical History: Cancer Additional Family Medical History / Comment(s): breast ,thyroid Medications and Allergies Home Medications Medication Instructions Recorded Confirmed Type Multivit-Min/FA/Lycopen/Lutein 1 tab PO DAILY 11/22/17 03/20/22 History [Centrum Silver Men Tablet] Cetirizine HCl [Zyrtec] 10 mg PO DAILY 07/19/19 03/20/22 History Esomeprazole Magnesium [NexIUM] 20 mg PO DAILY PRN 01/17/20 03/20/22 History Ibuprofen [Motrin] 800 mg PO DIRECTED PRN 02/07/20 03/20/22 History Acetaminophen Tab [Tylenol Tab] 1,000 mg PO Q6HR PRN #30 tablet 02/09/20 03/20/22 Rx Finasteride [Proscar] 5 mg PO DAILY 03/20/22 03/20/22 History Allergies Allergy/AdvReac Type Severity Reaction Status Date / Time iodine Allergy Swelling Verified 03/23/22 13:11 shellfish derived [Shellfish] Allergy Swelling Verified 03/23/22 13:11 Surgical - Exam Vital Signs Temp Pulse Resp BP Pulse Ox 97.6 F 67 16 120/78 97 03/23/22 13:24 03/23/22 13:24 03/23/22 13:24 03/23/22 13:24 03/23/22 13:24 - General well developed, well nourished, no distress - Eyes PERRL - ENT normal pinna - Neck no masses - Respiratory normal expansion - Cardiovascular Rhythm: regular - Abdomen Abdomen: soft, non tender - Rectum Hemorrhoids: moderate Assessment and Plan Assessment: GI bleed, history of hemorrhoids. We'll perform colonoscopy.
--- NOTE | 2022-03-23 15:14 | P.OP ---
Date of Procedure: 03/23/22 Preoperative Diagnosis: GI bleed Postoperative Diagnosis: Diverticulosis Internal and external hemorrhoids Procedure(s) Performed: Colonoscopy Anesthesia: MAC Surgeon: Hermilo Salazar Pathology: none sent Condition: stable Disposition: PACU Description of Procedure: The patient's placed on the endoscopy table in the lateral position. He received IV sedation. Digital rectal exam was performed. There was significant internal and external hemorrhoids. Flexible colonoscope was then placed patient anus and passed throughout the colon. Scope was passed beyond the splenic flexure segment tortuous the bowel. Patient significant signal sigmoid diverticulosis. Scope was withdrawn. The descending colon appeared normal. The sigmoid had extensive diverticular disease. Scope was brought back the rectum and this appeared normal. Scope summer back through the anus and there were significant internal and external hemorrhoids. Scope was withdrawn for patient. Presumed patient's bleeding from his hemorrhoids.
== END 2022-03-23 15:30 | disposition home or self-care (01) ==
LOC: ORWHC2ENDO 12:50
PROVIDERS: ATTEND Surgery
DX: K57.30 Diverticulosis of large intestine without perforation or abscess without bleeding (principal); K64.8 Other hemorrhoids; K64.4 Residual hemorrhoidal skin tags; K92.2 Gastrointestinal hemorrhage, unspecified; Q43.8 Other specified congenital malformations of intestine; J45.909 Unspecified asthma, uncomplicated; K21.9 Gastro-esophageal reflux disease without esophagitis; H91.90 Unspecified hearing loss, unspecified ear; M19.90 Unspecified osteoarthritis, unspecified site; L40.9 Psoriasis, unspecified; N40.0 Benign prostatic hyperplasia without lower urinary tract symptoms; Z90.49 Acquired absence of other specified parts of digestive tract; Z98.890 Other specified postprocedural states; Z87.891 Personal history of nicotine dependence; Z82.49 Family history of ischemic heart disease and other diseases of the circulatory system; Z83.79 Family history of other diseases of the digestive system; Z83.6 Family history of other diseases of the respiratory system; Z83.511 Family history of glaucoma; Z80.8 Family history of malignant neoplasm of other organs or systems; Z80.3 Family history of malignant neoplasm of breast; Z83.49 Family history of other endocrine, nutritional and metabolic diseases; Z79.899 Other long term (current) drug therapy; Z91.013 Allergy to seafood; Z91.048 Other nonmedicinal substance allergy status
CPT/HCPCS: 45378; J2704

== ENCOUNTER 2022-03-24 07:42 | Day surgery (SDC) | payer OTHER ==
[2022-03-20 11:50] VITALS: BMI 29.2
[~2022-03-24 07:42] MED LIST changes: +ACETAMINOPHEN TAB 500 MG TAB PO PRN; +DEXAMETHASONE SOD PHOSPHATE 4 MG/ML 1 ML VIAL IV ONE; +HEPARIN SODIUM,PORCINE/PF 5,000 UNIT/0.5 ML SYRINGE SQ PRN; +HYDROmorphone 0.5 MG/0.5 ML SYRINGE IVP PRN; -LIDOCAINE 1% (10MG/ML) FOR IV START INTRADERMA PRN; +Pre Op ABX Message 1 EACH MISC MISCELLANE ONE; +fentaNYL (PF) 50 MCG/ML 2 ML AMP IV PRN
[2022-03-24] MEDS ORDERED: DEXAMETHASONE SOD PHOSPHATE 4 MG/ML 1 ML VIAL PO ONE (08:21)
--- NOTE | 2022-03-24 09:06 | P.GSHP ---
History of Present Illness H&P Date: 03/24/22 Chief Complaint: Internal and external hemorrhoids This a 56-year-old male presents today for internal and external hemorrhoidectomy. Patient's had issues with rectal bleeding he'll pain and itching. Past Medical History Past Medical History: Asthma, GERD/Reflux, Hearing Disorder / Deafness, Osteoarthritis (OA), Prostate Disorder, Skin Disorder Additional Past Medical History / Comment(s): hx electrical heart problems treated (Over 15 yrs ago)-no current problems, hx of allergy induced asthma, bronchitis with bronchial trachial malasia. (if he coughs hard he has passed out)., hiatal hernia, hx of crushing injury right foot with nerve damage-foot is numb., psoriasis, BPH ., [place]-hearing aids., left inguinal hernia. History of Any Multi-Drug Resistant Organisms: None Reported Past Surgical History: Cholecystectomy, Heart Catheterization, Hernia Repair Additional Past Surgical History / Comment(s): foreign body removal rt hand, surgery left finger (saw injury) Past Anesthesia/Blood Transfusion Reactions: No Reported Reaction, Family History of Problems w/ Anesthesia Additional Past Anesthesia/Blood Transfusion Reaction / Comment(s): son had problem coming out after hand surgery-"too much anesthesia' Smoking Status: Former smoker - Past Family History Mother Family Medical History: COPD, GERD/Reflux, Hypertension Additional Family Medical History / Comment(s): Glaucoma, staph infection Father Family Medical History: Cancer Additional Family Medical History / Comment(s): Cancer-skin Sister(s) Family Medical History: Cancer Additional Family Medical History / Comment(s): breast ,thyroid Medications and Allergies Home Medications Medication Instructions Recorded Confirmed Type Multivit-Min/FA/Lycopen/Lutein 1 tab PO DAILY 11/22/17 03/20/22 History [Centrum Silver Men Tablet] Cetirizine HCl [Zyrtec] 10 mg PO DAILY 07/19/19 03/20/22 History Esomeprazole Magnesium [NexIUM] 20 mg PO DAILY PRN 01/17/20 03/20/22 History Ibuprofen [Motrin] 800 mg PO DIRECTED PRN 02/07/20 03/20/22 History Acetaminophen Tab [Tylenol Tab] 1,000 mg PO Q6HR PRN #30 tablet 02/09/20 03/20/22 Rx Finasteride [Proscar] 5 mg PO DAILY 03/20/22 03/20/22 History Allergies Allergy/AdvReac Type Severity Reaction Status Date / Time iodine Allergy Swelling Verified 03/24/22 07:56 shellfish derived [Shellfish] Allergy Swelling Verified 03/24/22 07:56 Surgical - Exam Vital Signs Temp Pulse Resp BP Pulse Ox 97.2 F L 58 L 16 124/76 95 03/24/22 08:00 03/24/22 08:00 03/24/22 08:00 03/24/22 08:00 03/24/22 08:00 - General well developed, well nourished, no distress - Eyes PERRL - ENT normal pinna - Neck no masses - Respiratory normal expansion - Cardiovascular Rhythm: regular - Abdomen Abdomen: soft, non tender - Rectum Hemorrhoids: moderate Assessment and Plan Assessment: Introduction hemorrhoids. We'll perform hemorrhoidectomy
[2022-03-24] MEDS ORDERED: PROPOFOL 10 MG/ML 20 ML VIAL IV ONE (09:20)
[2022-03-24] MEDS ORDERED: fentaNYL (PF) 50 MCG/ML 2 ML AMP ONE (09:20)
[2022-03-24] MEDS ORDERED: MIDAZOLAM 2 MG/2 ML VIAL ONE (09:20)
[2022-03-24] MEDS ORDERED: SUCCINYLCHOLINE CHLORIDE 100 MG/5 ML SYR IV ONE (09:20)
[2022-03-24] MEDS ORDERED: LIDOCAINE 2% INJ 20 MG/ML (2 ML VIAL) ONE (09:20)
[2022-03-24] MEDS ORDERED: BUPIVACAIN-EPI 0.25%-1:200,000 30 ML VIAL SQ ONE ×2 (09:26→09:59)
[2022-03-24] MEDS ORDERED: GELATIN SPONGE,ABSORB (LARGE) 1 EACH SPONGE TOPICAL ONE (09:52)
--- NOTE | 2022-03-24 10:16 | P.OP ---
Date of Procedure: 03/24/22 Preoperative Diagnosis: Internal and external Hemorrhoids Postoperative Diagnosis: Internal and external hemorrhoids Procedure(s) Performed: Internal and external hemorrhoidectomy Anesthesia: ALEXANDREA Surgeon: Hermilo Salazar Estimated Blood Loss (ml): 5 Pathology: other (Internal and external hemorrhoids) Condition: stable Disposition: PACU Description of Procedure: The patient's placed on the operating table in the prone position after receiving general anesthesia. His anus was prepped and draped usual sterile fashion. An anal block was performed with 1% local Xylocaine. Patient large hemorrhoids. The anal retractors placed anus. The left lateral hemorrhoidal column was grasped with a pair of Allis clips. Then using the Harmonic scissors the hemorrhoid was performed. Next the right anterior and right posterior hemorrhoidal columns were dissected free in identical fashion. There is no bleeding seen. The anus was packed with Gelfoam. Patient top she will was sent to recovery room in stable condition.
[2022-03-24 10:31] VITALS: TEMP 97
[2022-03-24] MEDS ORDERED: HYDROmorphone 0.5 MG/0.5 ML SYRINGE IVP ONE (10:34)
[2022-03-24 10:50] VITALS: RESP 16
[2022-03-24 12:32] VITALS: BP 112/83; PULSE 78
== END 2022-03-24 12:41 | disposition home or self-care (01) ==
LOC: OR 07:42
PROVIDERS: ATTEND Surgery
DX: K64.8 Other hemorrhoids (principal); K64.4 Residual hemorrhoidal skin tags; K21.9 Gastro-esophageal reflux disease without esophagitis; N42.9 Disorder of prostate, unspecified; J45.909 Unspecified asthma, uncomplicated; F17.220 Nicotine dependence, chewing tobacco, uncomplicated; Z91.013 Allergy to seafood; Z88.3 Allergy status to other anti-infective agents; Z79.899 Other long term (current) drug therapy; H91.90 Unspecified hearing loss, unspecified ear; M19.90 Unspecified osteoarthritis, unspecified site; Z90.49 Acquired absence of other specified parts of digestive tract; Z80.8 Family history of malignant neoplasm of other organs or systems; Z82.49 Family history of ischemic heart disease and other diseases of the circulatory system; Z83.6 Family history of other diseases of the respiratory system; Z84.89 Family history of other specified conditions
CPT/HCPCS: 88304; 46260; J2250; J1100; J3010; J0330; J2704; J1170; J1644; J2001

== ENCOUNTER → 2022-06-26 | Outpatient (CLI) | payer BC ==
--- NOTE | 2022-06-28 04:57 | MR ---
EXAMINATION TYPE: MR brain wo con DATE OF EXAM: 06/26/2022 COMPARISON: NONE HISTORY: Dizzy spells, imbalance, memory issues. Amnesia. TECHNIQUE: Multiplanar, multisequence imaging of the brain and brainstem is performed without IV cont rast. FINDINGS: Diffusion weighted images demonstrate no evidence of a recent infarct or other diffusion abnormality. There is no extraaxial fluid collection or significant white matter signal abnormality. The ventricu lar system and cisternal spaces are normal in size and appearance. The brain volume is age appropria te. Midline structures demonstrate normal morphology. The craniocervical junction appears within normal limits. Normal vascular flow voids are present. The visualized sinuses are clear and the globes are i ntact. Nasal septum deviated to right of midline. No suspicious fluid signal bilateral mastoid air ce lls. IMPRESSION: No significant findings seen to account for patient's symptoms.
== END | disposition home or self-care (01) ==
LOC: RADMRIMAIN 19:29
PROVIDERS: ATTEND Psychiatry & Neurology Neurology
DX: R41.3 Other amnesia (principal)
CPT/HCPCS: 70551

== ENCOUNTER → 2022-07-21 | Outpatient (CLI) | payer BC ==
[2022-07-21 19:10] LABS: T4, Free (Free Thyroxine) 0.98 ng/dL (0.800-1.800)
== END | disposition home or self-care (01) ==
LOC: LABWHC1 11:09
PROVIDERS: ATTEND Psychiatry & Neurology Neurology
DX: R41.3 Other amnesia (principal); R42 Dizziness and giddiness; H93.19 Tinnitus, unspecified ear; H91.90 Unspecified hearing loss, unspecified ear
CPT/HCPCS: 36415; 82306; 82607; 84439; 84443

== ENCOUNTER → 2022-12-04 | Outpatient (CLI) | payer OTHER ==
--- NOTE | 2022-12-04 11:11 | XR ---
EXAMINATION TYPE: XR knee limited bilateral DATE OF EXAM: 12/04/2022 COMPARISON: NONE HISTORY: Pain TECHNIQUE: Three views of each knee are submitted. FINDINGS: Mild hypertrophic change along the upper margin, bilaterally. Mild joint space narrowing of the media l part. No acute fracture or dislocation. No erosive changes. IMPRESSION: Mild osteoarthritis.
--- NOTE | 2022-12-04 13:27 | XR ---
EXAM TYPE: LUMBAR SPINE X RAY SERIES COMPARISON: NONE HISTORY: Pain TECHNIQUE: 4 views are submitted. FINDINGS: Alignment is anatomic. The pedicles are intact. The transverse processes are intact. There is nanette re facet arthropathy with probable foraminal encroachment L4-5 and L5-S1. Moderate to severe degenera tive disc disease at these levels. Mild changes L3-4. IMPRESSION: 1. Multilevel degenerative disc disease and facet arthropathy most marked at L4-5 and L5-S1 with susp ected bilateral foraminal encroachment.
== END | disposition home or self-care (01) ==
LOC: RADXRMAIN 10:36
PROVIDERS: ATTEND Internal Medicine
DX: M17.0 Bilateral primary osteoarthritis of knee (principal); M47.817 Spondylosis without myelopathy or radiculopathy, lumbosacral region; M51.37 Other intervertebral disc degeneration, lumbosacral region
CPT/HCPCS: 72100

== ENCOUNTER 2022-12-14 08:52 | Day surgery (SDC) | payer BC, OTHER ==
[~2022-12-14 08:52] MED LIST changes: -ACETAMINOPHEN TAB 500 MG TAB PO PRN; -DEXAMETHASONE SOD PHOSPHATE 4 MG/ML 1 ML VIAL IV ONE; -HEPARIN SODIUM,PORCINE/PF 5,000 UNIT/0.5 ML SYRINGE SQ PRN; -HYDROmorphone 0.5 MG/0.5 ML SYRINGE IVP PRN; -LACTATED RINGERS 1,000 ML IV SCH; -Pre Op ABX Message 1 EACH MISC MISCELLANE ONE; +SODIUM CHLORIDE 0.9% 1,000 ML IV SCH; -fentaNYL (PF) 50 MCG/ML 2 ML AMP IV PRN
[2022-12-14 09:14] VITALS: BP 120/78; PULSE 60; RESP 18; TEMP 97.8
--- NOTE | 2022-12-17 18:35 | P.EPPROC ---
- EP Procedure Note Electrophysiology Procedure Note: Diagnosis Recurrent syncope Twelve-lead EKG shows sinus rhythm normal [place] narrow QRS normal ST segments Tilt table test per protocol Baseline blood pressure 125/77 mmHg, Baseline heart rate 60 beats a minute Patient was tilted upright at an angle of 70 per protocol No change in heart rate of blood pressure No symptoms Impression normal twelve-lead EKG No evidence for neurocardiogenic syncope or dysautonomia
== END 2022-12-14 10:41 | disposition home or self-care (01) ==
LOC: CATHEP 08:52
PROVIDERS: ATTEND Internal Medicine Clinical Cardiac Electrophysiology
DX: R55 Syncope and collapse (principal); F17.210 Nicotine dependence, cigarettes, uncomplicated; Z79.899 Other long term (current) drug therapy
CPT/HCPCS: 93660

== ENCOUNTER 2022-12-14 10:40 | Emergency (ER) | payer OTHER ==
[2022-12-14 10:58] VITALS: BP 127/87; PULSE 69; RESP 18
[2022-12-14] MEDS ORDERED: HYDROcodone/APAP 5-325MG 1 EACH TAB PO STA (11:08)
[2022-12-14] MEDS ORDERED: KETOROLAC 15 MG/ML 1 ML VIAL IM STA (11:08)
--- NOTE | 2022-12-14 11:26 | ED ---
Extremity Problem HPI - General Chief complaint: Extremity Injury, Lower Stated complaint: L knee pain Time Seen by Provider: 12/14/22 10:48 Source: patient, RN notes reviewed Mode of arrival: ambulatory Limitations: no limitations - History of Present Illness Initial comments: This is a 57-year-old male who presents to the emergency department for left knee pain. States that he was laying in bed last night, when he suddenly heard a pop in his left knee. Denies any trauma. He has since had difficulty bending the leg and walking. He is taking ibuprofen and Tylenol with no relief in symptoms. He has also been applying heat. He has started to notice swelling to the left knee as well. Denies any fevers, chills, sore throat, cough, dyspnea, chest pain, palpitations, abdominal pain, nausea, vomiting, diarrhea, back pain, or headaches. MD Complaint: extremity pain Onset/Timin -: days(s) Location: left, knee History of Same: No - Related Data Home Medications Medication Instructions Recorded Confirmed Multivit-Min/FA/Lycopen/Lutein 1 tab PO QAM 11/22/17 12/14/22 [Centrum Silver Men Tablet] Cetirizine HCl [Zyrtec] 10 mg PO QAM 07/19/19 12/14/22 Esomeprazole Magnesium [NexIUM] 20 mg PO DAILY PRN 12/14/22 12/14/22 Previous Rx's Medication Instructions Recorded predniSONE 50 mg PO DAILY 5 Days #5 tab 12/14/22 Allergies Allergy/AdvReac Type Severity Reaction Status Date / Time iodine Allergy Swelling Verified 12/14/22 11:41 shellfish derived [Shellfish] Allergy Swelling Verified 12/14/22 11:41 Review of Systems ROS Statement: Those systems with pertinent positive or pertinent negative responses have been documented in the HPI. ROS Other: All systems not noted in ROS Statement are negative. Past Medical History Past Medical History: Asthma, GERD/Reflux, Hearing Disorder / Deafness, Osteoarthritis (OA), Prostate Disorder, Skin Disorder Additional Past Medical History / Comment(s): hx electrical heart problems treated (Over 15 yrs ago)-no current problems, hx of allergy induced asthma, bronchitis with bronchial trachial malasia. (if he coughs hard he has passed out)., hiatal hernia, hx of crushing injury right foot with nerve damage-foot is numb., psoriasis, BPH ., MANZANITA-hearing aids., left inguinal hernia. History of Any Multi-Drug Resistant Organisms: None Reported Past Surgical History: Cholecystectomy, Heart Catheterization, Hernia Repair Additional Past Surgical History / Comment(s): foreign body removal rt hand, surgery left finger (saw injury) Past Anesthesia/Blood Transfusion Reactions: No Reported Reaction, Family History of Problems w/ Anesthesia Additional Past Anesthesia/Blood Transfusion Reaction / Comment(s): son had problem coming out after hand surgery-"too much anesthesia' Past Psychological History: No Psychological Hx Reported Smoking Status: Former smoker Past Alcohol Use History: Occasional Past Drug Use History: None Reported - Past Family History Mother Family Medical History: COPD, GERD/Reflux, Hypertension Additional Family Medical History / Comment(s): Glaucoma, staph infection Father Family Medical History: Cancer, Musculoskeletal Disorder, Neurologic Disorder Additional Family Medical History / Comment(s): Cancer-skin, from parkinson's Sister(s) Family Medical History: Cancer Additional Family Medical History / Comment(s): 1 sister with breast cancer and one sister with thyroid cancer. General Exam Limitations: no limitations General appearance: alert, in no apparent distress Head exam: Present: atraumatic, normocephalic, normal inspection Respiratory exam: Present: normal lung sounds bilaterally. Absent: respiratory distress, wheezes, rales, rhonchi, stridor Cardiovascular Exam: Present: regular rate, normal rhythm, normal heart sounds. Absent: systolic murmur, diastolic murmur, rubs, gallop, clicks Extremities exam: Present: other (Minor swelling to the left patella. Limited passive range of motion secondary to pain. No deformities, erythema, ecchymosis, or palpable tenderness.) Neurological exam: Present: alert, oriented X3, CN II-XII intact Psychiatric exam: Present: normal affect, normal mood Skin exam: Present: warm, dry, intact, normal color. Absent: rash Course Vital Signs 12/14/22 10:56 Pulse Rate 69 Respiratory 18 Rate Blood Pressure 127/87 O2 Sat by Pulse 96 Oximetry Medical Decision Making - Medical Decision Making This is a 57-year-old male who presents to the emergency department for left knee pain. Was pt. sent in by a medical professional or institution? @ -No Did you speak to anyone other than the patient for history? @ -No Did you review nursing and triage notes? @ -Yes, and I agree, it is accurate with regards to the patient's symptoms. Were old charts reviewed? @ -No Differential Diagnosis? @ -Differential Knee Pain: Fracture, dislocation, sprain, contusion, meniscus injury, ACL/LCL/MCL/PCL injury, this is not meant to be an all-inclusive list. X-rays interpreted by me (1pt min.)? @ -X-ray of the left knee obtained. My interpretation identifies no acute fractures or dislocations. What testing was considered but not performed? (CT, X-rays, U/S, labs)? Why? @ -None What meds were considered but not given? Why? @ -None Did you discuss the management of the patient with other professionals? @ -No Did you reconcile home meds? @ -No Was smoking cessation discussed for >3mins.? @ -No Was critical care preformed (if so, how long)? @ -No Were there social determinants of health that impacted care today? How? (Homelessness, low income, unemployed, alcoholism, drug addiction, transportation, low edu. Level, literacy, decrease access to med. care, group home, rehab)? @ -No Was there de-escalation of care discussed even if they declined? (Discuss DNR or withdrawal of care, Hospice)? @ -No What co-morbidities impacted this encounter? (DM, HTN, Smoking, COPD, CAD, Cancer, CVA, Hep., AIDS, mental health diagnosis, sleep apnea, morbid obesity)? @ -Osteoarthritis Was patient admitted / discharged? @ -Discharged. X-ray of the left knee obtained revealing fluid in the suprapatellar bursa suggestive of a bursitis. Findings reviewed with the patient. Pain was controlled in the emergency department. He was also given a knee immobilizer. Prescription for 5 day course of prednisone provided. He is instructed to avoid taking over the counter antiinflammatories when taking the Prednisone and to only take it with Tylenol. Also advised applying ice to the knee, elevating it, and using compression. Information for orthopedic follow-up provided. He is instructed to contact them for a follow-up appointment. Undiagnosed new problem with uncertain prognosis? @ -None Drug Therapy requiring intensive monitoring for toxicity (Heparin, Nitro, Insulin, Cardizem)? @ -None Were any procedures done? @ -None Diagnosis/symptom? @ -Left knee bursitis Acute, or Chronic, or Acute on Chronic? @ -Acute Uncomplicated (without systemic symptoms) or Complicated (systemic symptoms)? @ -Uncomplicated Side effects of treatment? @ -None Exacerbation, Progression, or Severe Exacerbation] @ -Not applicable Poses a threat to life or bodily function? @ -Impacting his ability to use the left leg Return precautions reviewed in depth, the patient is instructed to return to the emergency department with any new, worsening, or concerning symptoms. Patient verbalized understanding. This case was discussed in detail with the attending ED physician, Dr. Andrews. Presentation, findings, and treatment plan discussed in detail as well. - Radiology Data Radiology results: report reviewed, image reviewed Disposition Clinical Impression: Bursitis of left knee Disposition: HOME SELF-CARE Instructions (If sedation given, give patient instructions): Knee Bursitis (ED) Additional Instructions: Return to the emergency department with any new, worsening, or concerning symptoms. Take the prednisone daily for 5 days. You may take this with Tylenol, however do not take any dyoz-mog-vjojcnw anti-inflammatory such as ibuprofen until you finish this. Apply ice for 15-20 minutes every 2-3 hours, keep the leg elevated, and compressed with something like an Pavel bandage. Contact orthopedics as listed below for a follow-up appointment. Follow up with your primary care provider in 1-2 days. Prescriptions: predniSONE 50 mg PO DAILY 5 Days #5 tab Is patient prescribed a controlled substance at d/c from ED?: No Referrals: Nonstaff,Physician [Primary Care Provider] - 1-2 days Jeff Mckeon MD [Medical Doctor] - 1-2 days
--- NOTE | 2022-12-14 11:29 | XR ---
EXAMINATION TYPE: XR knee complete LT DATE OF EXAM: 12/14/2022 COMPARISON: NONE HISTORY: Pain TECHNIQUE: Three views are submitted. FINDINGS: Mild narrowing of the medial compartment the knee joint and patellofemoral joint. There is a small am ount of fluid in the suprapatellar bursa. Osseous structures are intact. No acute fracture seen. IMPRESSION: 1. No acute fracture or dislocation. 2. Osteoarthritis with small amount of bursal fluid collection
== END 2022-12-14 12:22 | disposition home or self-care (01) ==
LOC: EC 10:40
DX: M70.52 Other bursitis of knee, left knee (principal); J45.909 Unspecified asthma, uncomplicated; K21.9 Gastro-esophageal reflux disease without esophagitis; Z79.899 Other long term (current) drug therapy; Z87.891 Personal history of nicotine dependence; Z88.8 Allergy status to other drugs, medicaments and biological substances; Z91.013 Allergy to seafood
CPT/HCPCS: 99283

== ENCOUNTER → 2023-01-28 | Outpatient (CLI) | payer OTHER ==
--- NOTE | 2023-01-29 06:18 | MR ---
EXAMINATION TYPE: MR knee LT wo con DATE OF EXAM: 01/28/2023 COMPARISON: Left knee x-ray December 14, 2022 HISTORY: Left knee pain and swelling. TECHNIQUE: Multiplanar, multisequence images of the knee is performed without IV contrast. FINDINGS: MEDIAL MENISCUS: Medial extrusion of medial meniscus. Horizontal and oblique signal posterior horn ex tends to inferior articular surface. LATERAL MENISCUS: Anterior and posterior horns are intact without tear. CRUCIATE LIGAMENTS: The anterior and posterior cruciate ligaments are intact and unremarkable. COLLATERAL LIGAMENTS: The medial collateral ligament and lateral collateral ligament complex are inta ct. Mild fluid signal surrounds medial collateral ligament. EXTENSOR MECHANISM: Visualized quadriceps and patellar tendons are intact. Some increased signal dist al quadriceps tendon. EFFUSION: Small to moderate size suprapatellar joint effusion. POPLITEAL CYST: No popliteal/lemus cyst. TRICOMPARTMENT SPACES: Mild to moderate tricompartment joint space loss greatest patellofemoral franco rtment. No significant spurring. CARTILAGE: Some cartilaginous loss medial tibiofemoral compartment. BONE MARROW SIGNAL: No focal abnormal marrow signal is appreciated. OTHER: There is cystic change immediately posterior to the PCL. IMPRESSION: 1. Full-thickness tear posterior medial meniscus extending into central body. 2. Mild MCL sprain injury. 3. Htmpv-rn-ywbnrljf sized suprapatellar joint effusion. 4. Some tendinosis of the distal quadriceps tendon. 5. Mild to moderate tricompartment degenerative changes as detailed above.
== END | disposition home or self-care (01) ==
LOC: RADMRIMAIN 15:10
PROVIDERS: ATTEND Internal Medicine
DX: S83.242A Other tear of medial meniscus, current injury, left knee, initial encounter (principal); S83.412A Sprain of medial collateral ligament of left knee, initial encounter; M17.12 Unilateral primary osteoarthritis, left knee; M25.462 Effusion, left knee; X58.XXXA Exposure to other specified factors, initial encounter

== ENCOUNTER → 2023-02-22 | Outpatient (CLI) | payer OTHER ==
[2023-02-22 17:36] LABS: Basophils # (A) 0.07 X 10*3/uL (0.00-0.10); Basophils % (A) 0.9 %; Eosinophils # (A) 0.23 X 10*3/uL (0.04-0.35); Eosinophils % (A) 3.1 %; HCT 50.3 % (39.6-50.0); HGB 16.9 d/dL (12.0-15.0); Lymphocytes # (A) 1.93 X 10*3/uL (0.90-5.00); MCH 33.1 pg (27.0-32.0); MCHC 33.6 d/dL (32.0-37.0); MCV 98.4 FL (80.0-97.0); Mean Platelet Volume 10.4 FL (9.5-12.2); Monocytes # (A) 0.48 X 10*3/uL (0.20-1.00); Monocytes % (A) 6.5 %; NRBC Per 100 WBC 0 X 10*3/uL (0.00-0.01); Neutrophils # (A) 4.68 X 10*3/uL (1.80-7.70); Neutrophils % (A) 63.2 %; Platelet Count 422 X 10*3/uL (140-440); RBC 5.11 X 10*6/uL (4.40-5.60); RDW 13.2 % (11.5-14.5); WBC 7.41 X 10*3/uL (4.50-10.00)
[2023-02-23 01:53] LABS: BUN/Creat Ratio 15.78 Ratio (12.00-20.00); Blood Urea Nitrogen 14.2 mg/dL (9.0-27.0); Calcium 9.4 mg/dL (8.7-10.3); Carbon Dioxide 25.6 mmol/L (21.6-31.8); Chloride 104 mmol/L (96-109); Glucose 112 mg/dL (70-110); Potassium 4.4 mmol/L (3.5-5.5); Sodium 142 mmol/L (135-145)
== END | disposition home or self-care (01) ==
LOC: LABPAT 09:34
PROVIDERS: ATTEND Orthopaedic Surgery
DX: Z01.818 Encounter for other preprocedural examination (principal); M23.92 Unspecified internal derangement of left knee
CPT/HCPCS: 36415; 80048; 85025; 93005

== ENCOUNTER 2023-03-03 11:39 | Day surgery (SDC) | payer OTHER ==
[2023-02-26 12:57] VITALS: BMI 29.2
--- NOTE | 2023-03-03 07:49 | P.HPOR ---
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 He has medial pain along with swelling, stiffness, and locking. He's having night symptoms. He's tried medications without much relief. He denies significant previous problems. Review of Systems Negative except as in HPI Past Medical History Past Medical History: Asthma, GERD/Reflux, Hearing Disorder / Deafness, Osteoarthritis (OA), Prostate Disorder, Skin Disorder, Sleep Apnea/CPAP/BIPAP Additional Past Medical History / Comment(s): hx electrical heart problems treated (Over 15 yrs ago)-no current problems, allergy induced asthma, bronchitis with bronchial trachial malasia. (if he coughs hard he has passed out)., hiatal hernia, hx of crushing injury right foot with nerve damage-foot is numb., psoriasis., INUPIAT-hearing aids., sleep apnea- no machine., pain left knee History of Any Multi-Drug Resistant Organisms: None Reported Past Surgical History: Cholecystectomy, Heart Catheterization, Hernia Repair Additional Past Surgical History / Comment(s): foreign body removal rt hand, surgery left finger (saw injury), hemorrhoids Past Anesthesia/Blood Transfusion Reactions: No Reported Reaction, Family History of Problems w/ Anesthesia Additional Past Anesthesia/Blood Transfusion Reaction / Comment(s): son had problem coming out after hand surgery-"too much anesthesia' Past Psychological History: No Psychological Hx Reported Smoking Status: Former smoker Past Alcohol Use History: Occasional Additional Past Alcohol Use History / Comment(s): STARTED SMOKING AT AGE 13 QUIT SMOKING 2002 , currently chews tobacco Past Drug Use History: None Reported Additional Drug Use History / Comment(s): GUMMIES CBD INSTRUCTED TO HOLD 24 HOURS PRIOR TO PROCEDURE - Past Family History Mother Family Medical History: COPD, GERD/Reflux, Hypertension Additional Family Medical History / Comment(s): Glaucoma, staph infection Father Family Medical History: Cancer, Musculoskeletal Disorder, Neurologic Disorder Additional Family Medical History / Comment(s): Cancer-skin, from parkinson's Sister(s) Family Medical History: Cancer Additional Family Medical History / Comment(s): 1 sister with breast cancer and one sister with thyroid cancer. Medications and Allergies Home Medications Medication Instructions Recorded Confirmed Type Cetirizine HCl [Zyrtec] 10 mg PO QAM 07/19/19 02/26/23 History Esomeprazole Magnesium [NexIUM] 20 mg PO DAILY PRN 12/14/22 02/26/23 History Famotidine (Unknown Dose) 1 dose PO DIRECTED PRN 02/26/23 History Multivitamins, Thera [Multivitamin 1 tab PO DAILY 02/26/23 02/26/23 History (formulary)] Allergies Allergy/AdvReac Type Severity Reaction Status Date / Time iodine Allergy Swelling Verified 02/26/23 13:00 shellfish derived [Shellfish] Allergy Swelling Verified 02/26/23 12:33 Physical Examination - Knee left Appearance: effusion Effusion grade: grade 2 Tenderness with palpation: medial Pain: throughout ROM Gait: limping ROM: extension: -10 degrees ROM: flexion: 120 degrees Crepitus with motion: Yes Strength: extension: 5/5 Strength: flexion: 5/5 Meniscal tests: medial meniscal tests: positive, medial joint line pain: positive Results The patient is a well-developed well-nourished male approximately 5 foot 11, 220 pounds of endomorphic habitus. HEENT exam is nonfocal, neck is supple. He has painless passive motion of his left hip. Straight leg raise is negative. His distal neurovascular appears intact in the left lower extremity. - Diagnostic results Knee MRI: image reviewed (MRI of the left knee is reviewed and shows a posterior medial meniscal tear along with medial compartment degenerative changes.) Assessment and Plan Assessment: Left knee symptomatic medial meniscal tear Left knee medial compartment degenerative joint disease Plan: I talked with patient regarding his condition along with treatment options. At this point quite symptomatic and limited having pain and mechanical symptoms despite attempted conservative measures. After thorough discussion he opted to proceed with surgery. We'll plan to proceed with left knee arthroscopic evaluation with probable partial medial meniscectomy. Risks and benefits were discussed at length in layman's terms. We will likely perform as an outpatient procedure.
[~2023-03-03 11:39] MED LIST changes: +DEXAMETHASONE SOD PHOSPHATE 4 MG/ML 1 ML VIAL IV ONE; +HYDROmorphone 0.5 MG/0.5 ML SYRINGE IVP PRN; +LACTATED RINGERS 1,000 ML IV SCH; +LIDOCAINE 1% (10MG/ML) FOR IV START INTRADERMA PRN; +ONDANSETRON 4 MG/2 ML VIAL IVP ONE; -SODIUM CHLORIDE 0.9% 1,000 ML IV SCH; +droPERidol 5 MG/2 ML VIAL IVP ONE
[2023-03-03] MEDS ORDERED: LACTATED RINGERS 1,000 ML IV ONE (12:18)
[2023-03-03] MEDS ORDERED: MIDAZOLAM 2 MG/2 ML VIAL ONE (12:44)
[2023-03-03] MEDS ORDERED: SUCCINYLCHOLINE CHLORIDE 200 MG/10 ML VIAL IV ONE (12:44)
[2023-03-03] MEDS ORDERED: HYDROmorphone (PF) 1 MG/ML ONE (12:44)
[2023-03-03] MEDS ORDERED: LIDOCAINE 2% INJ 20 MG/ML (2 ML VIAL) ONE (12:44)
[2023-03-03] MEDS ORDERED: KETOROLAC 15 MG/ML 1 ML VIAL ONE (12:44)
[2023-03-03] MEDS ORDERED: PROPOFOL 10 MG/ML 20 ML VIAL IV ONE (12:44)
[2023-03-03] MEDS ORDERED: fentaNYL (PF) 50 MCG/ML 2 ML AMP ONE (12:44)
[2023-03-03] MEDS ORDERED: EPINEPHrine (PF) 1 ML in SODIUM CHLORIDE 0.9% IRRIGATIO 3,000 ML IRRIGATION ONE (12:49)
--- NOTE | 2023-03-03 13:39 | P.OP ---
Date of Procedure: 03/03/23 Preoperative Diagnosis: Left knee internal derangement Postoperative Diagnosis: Left knee posterior medial meniscal tear Procedure(s) Performed: Left knee arthroscopic partial medial meniscectomy Anesthesia: SHELLEYA Surgeon: Wilber Luna Estimated Blood Loss (ml): 10 Pathology: none sent Condition: stable Disposition: PACU Indications for Procedure: The patient's a 57-year-old male who presents with progressive left knee pain and mechanical symptoms after a previous twisting injury despite attempted conservative measures. A discussion of the risks and benefits of operative intervention versus continued conservative measures was made with patient. He opted to proceed with surgery. Operative risks to include infection, neurovascular injury, development of blood clots, incomplete resolution of symptoms, possible worsening symptoms and need for subsequent procedures was discussed. Informed consent was obtained. Operative Findings: As below Description of Procedure: The patient was brought to the operating room, and after induction of general anesthesia examined the left knee. Collaterals were stable, Lisa was negative, and posterior drawer was negative. The left lower extremity was prepped and draped in a normal fashion. A superior lateral portal was made through a 3 mm skin incision superior and lateral to the patella. This was used for outflow. A lateral portal was made through a 5 mm vertical skin incision lateral to the patella tendon above the joint line. Diagnostic arthroscopy was performed. On inspection of the medial compartment, a complex tear involving the posterior horn of the medial meniscus extending to the middle one third was noted in the white- red junction. A portion of this was displaced under the remaining meniscus.. This was debrided back to a stable base with straight baskets and a motorized shaver. Grade 2 chondral changes were noted diffusely in the medial compartment. On inspection of the notch, the anterior cruciate ligament appeared to be intact. On inspection of the lateral compartment, a small tear involving the posterior most aspect the lateral meniscus in the white-white junction was noted. This was debrided back to stable base with a motorized shaver. The remaining lateral meniscus was intact. No significant chondral defect or injury was noted and lateral compartment. On inspection of the patellofemoral articulation, there was mild the general changes however no loose chondral fragments.. The gutters were clear debris. The knee was then thoroughly irrigated. The portals were closed with Steri-Strips. A sterile dressing was applied in addition to a compression stocking. The patient was awoken from general anesthesia and transferred to recovery room in good condition. Blood loss was estimated at 10 mL. No complications were incurred.
[2023-03-03 13:49] VITALS: TEMP 97.1
[2023-03-03 15:00] VITALS: RESP 18
[2023-03-03 16:11] VITALS: BP 129/70; PULSE 79
== END 2023-03-03 16:20 | disposition home or self-care (01) ==
LOC: OR 11:39
PROVIDERS: ATTEND Orthopaedic Surgery
DX: S83.232A Complex tear of medial meniscus, current injury, left knee, initial encounter (principal); S83.282A Other tear of lateral meniscus, current injury, left knee, initial encounter; X50.1XXA Overexertion from prolonged static or awkward postures, initial encounter; J45.909 Unspecified asthma, uncomplicated; G47.33 Obstructive sleep apnea (adult) (pediatric); J39.8 Other specified diseases of upper respiratory tract; H91.90 Unspecified hearing loss, unspecified ear; K21.9 Gastro-esophageal reflux disease without esophagitis; F10.20 Alcohol dependence, uncomplicated; Z79.1 Long term (current) use of non-steroidal anti-inflammatories (NSAID); Z79.899 Other long term (current) drug therapy; Z87.891 Personal history of nicotine dependence; Z91.048 Other nonmedicinal substance allergy status; Z91.013 Allergy to seafood
CPT/HCPCS: 29881; J2250; J0330; J1100; J0690; J2405; J0171; J3010; J1170 ×2; J1885; J2704; J2001

== ENCOUNTER → 2023-08-24 | Outpatient (CLI) | payer OTHER ==
--- NOTE | 2023-08-24 18:12 | CT ---
EXAMINATION TYPE: CT angio head neck DATE OF EXAM: 08/24/2023 HISTORY: memory loss COMPARISON: None CT DLP: 500.1 mGycm. Automated Exposure Control for Dose Reduction was Utilized. TECHNIQUE: CTA scan of the neck is performed with IV Contrast, patient injected with 65 cc mL of Iso radha 370, axial images are obtained, coronal and sagittal reformatted images are reviewed. Three-D rec onstructed images are created on an independent workstation and reviewed. Source images are reviewed . FINDINGS: Carotid/Vascular Structures: There is a 3 vessel arch. Common carotid arteries bifurcate into internal and external carotid arteries without significant jonathan w limiting stenosis. Vertebral arteries are codominant. Internal carotid arteries and vertebral arteries are patent to the skull base. Cervical of [place]: Vertebral basilar system appears normal. Posterior cerebral vasculature is unrema rkable. Internal carotid arteries bifurcate normally into A1 and M1 segments. A2 segments are normal. The anterior communicating artery is patent. The right posterior communicating artery is patent. The left posterior communicating artery is patent. Other: IMPRESSION: 1. No flow-limiting stenosis bilateral carotid bifurcations. 2. Normal [place] NASCET criteria was used in interpretation of this exam?
== END | disposition home or self-care (01) ==
LOC: RADCTMAIN 15:13
PROVIDERS: ATTEND Internal Medicine
DX: R55 Syncope and collapse (principal); R41.3 Other amnesia
CPT/HCPCS: 70496; 70498; Q9967